=== PATIENT | female | born 1940 | race Caucasian/White ===

== ENCOUNTER 2017-04-27 02:15 | Emergency (ER) | payer OTHER ==
[2017-04-27 02:50] VITALS: RESP 18; TEMP 98.1
--- NOTE | 2017-04-27 02:52 | EDPHY ---
H & P Stated Complaint: per ems staff at [facility] report 2 episodes of coffee ground diarrhea Time Seen by Provider: 04/27/17 02:40 HPI/ROS: Chief Complaint: Diarrhea, coffee-ground emesis HPI: 77-year-old woman with a history of advanced dementia, hypertension who is being sent in from [facility] after having 2 episodes of dark stools and dark emesis. Per EMS nursing staff at [facility] contacted family members in the on-call doctor were instructed to send the patient to the hospital for further care. The patient has advanced dementia is unable to provide any further history at this time. The patient does have a completed medical orders for scope of treatment form. This indicates that she is not for CPR she was comfort focus treatment only she does not want any artificial nutrition this is signed by the patient's legal guardian. ROS: Unobtainable secondary to the patient's advanced dementia PMH: Hypertension, advanced dementia, glaucoma Social History: No smoking, no alcohol, no recreational drug use Family History: non-contributory Physical Exam: Gen: Awake, Alert, No Distress HEENT: Nose: no rhinorrhea Eyes: PERRLA, EOMI Mouth: Moist mucosa Neck: Supple, no JVD Chest: nontender, lungs clear to auscultation Heart: S1, S2 normal, no murmur Abd: Soft, non-tender, no guarding Rectal: Brown stool Ext: no edema, non-tender Skin: no rash Neuro: CN II-XII intact, Sensation grossly intact, Strength 5/5 in bilateral upper and lower extremities - Medical/Surgical History Other PMH: alzheimers dis, hypertension, glaucoma Constitutional: Initial Vital Signs Temperature (C) 36.7 C 04/27/17 02:22 Heart Rate 102 H 04/27/17 02:22 Respiratory Rate 18 04/27/17 02:22 Blood Pressure 121/79 H 04/27/17 02:22 O2 Sat (%) 91 L 04/27/17 02:22 O2 Delivery Mode Room Air Allergies/Adverse Reactions: No Known Allergies Allergy (Unverified 04/27/17 02:51) Home Medications: Medication Instructions Recorded Ativan 04/27/17 Immodium 04/27/17 Lantanoprost 04/27/17 Lisinopril 04/27/17 Melatonin 04/27/17 Risperdal 04/27/17 Sertraline HCl 04/27/17 Tylenol 04/27/17 Zofran 04/27/17 Medical Decision Making ED Course/Re-evaluation: Hemoccult is guaiac positive. I have reviewed the patient's most form which was not initially included in the patient's paperwork that came with EMS. The most form does indicate that she has never CPR, she is for comfort focus treatment only, she was not for artificial nutrition. This was signed by the legal guardian, Viry Camacho. I have spoken directly with Ms. Camacho this morning. She states that she did receive a phone call at 1:10 a.m. but she did not answer in slept through it. This is the 1st time that she spoke with anybody regarding this [place]erk this morning. She is confirming that the patient is for comfort measures only and would not want any life-sustaining treatments. She would not want any IVs or blood work done. She certainly would not want any endoscopies or any other treatments. Her wish is for comfort measures only. The patient's legal guardian, Mrs. Camacho, would like the patient transferred back to [facility] with no other evaluations or interventions done. I feel that this is appropriate given the patient's indication of her wishes on her forearm and her advanced dementia. She is not uncomfortable. She is currently sleeping. I have called [facility] spoken with nurse Haddad who arranged to have the patient transfer here. She states that she called the on-call physician instructed to send her in. She also states that her staff had contacted family who in indicated they wanted her transferred. They will accept her back at the other facility. - Data Points Laboratory Results: 04/27/17 02:50 Stool Occult Bld Scrn POSITIVE H (NEGATIVE) Departure - Departure Disposition: Home, Routine, Self-Care Clinical Impression: Vomiting Condition: Fair Instructions: Acute Nausea and Vomiting (ED) Additional Instructions: Please do not send this patient back to the emergency department unless her comfort needs cannot be met. Please respect the patient's wishes as documented on the signed [place] MOST form. Referrals: BERNARDA GALVEZ [Other] - As per Instructions
[2017-04-27 04:19] VITALS: BP 139/80; PULSE 91; O2SAT 92
== END 2017-04-27 04:19 | disposition home or self-care (01) ==
DX: R11.10 Vomiting, unspecified (principal); I10 Essential (primary) hypertension

== ENCOUNTER 2017-10-21 14:20 | Inpatient (IN) | payer OTHER ==
[2017-10-21] MEDS ORDERED: NS 1,000 ML IV ONE (14:48)
--- NOTE | 2017-10-21 14:48 | EDPHY ---
H & P Time Seen by Provider: 10/21/17 14:47 HPI/ROS: Chief complaint. Fever, right arm redness HPI. 77-year-old female here with fever and lethargy. Here brother visited her and found her to be lethargic. He also noticed left arm redness and swollen. Patient reports it is painful. Apparently no cough. How high the fever was is not known. She is afebrile here however. Symptoms apparently began in the last 1-2 days. Unclear whether the patient has painful urination. Patient has a baseline history of dementia so is a poor historian. Apparently no vomiting or diarrhea. No cough. ROS Constitutional. Fever and weakness Eyes. no problems with vision ENT. no sore throat, no nasal drainage Cardiovascular. no chest pain Respiratory. no shortness of breath, no cough Abdominal. no abdominal pain, no nausea/vomiting, no diarrhea . no problems urinating MS. no calf pain/swelling, no neck/back pain, no joint pain Skin. Redness left forearm Lymph. no swollen glands Neuro. Lethargy and decreased ability to walk Past Medical/Surgical History: Dementia, hypertension, glaucoma Social History: , nonsmoker, no alcohol Physical Exam: General Appearance: Lethargic but responsive well-developed female stable vital signs moderate distress Eyes: Pupils equal and round no pallor or injection. ENT, Mouth: Mucous membranes are moist. Respiratory: There are no retractions, lungs are clear to auscultation. Cardiovascular: Regular rate and rhythm. Gastrointestinal: Abdomen is soft and nontender, no masses, bowel sounds normal. Neurological: Awake and alert, sensory and motor exams grossly normal. Skin: Evidence of cellulitis and erythema in apparent pustule on the left forearm. Musculoskeletal: Neck is supple nontender. Extremities symmetrical, full range of motion. Psychiatric: Patient is oriented only to person Constitutional: Initial Vital Signs Temperature (C) 36.6 C 10/21/17 14:39 Heart Rate 77 10/21/17 14:39 Respiratory Rate 20 10/21/17 14:39 Blood Pressure 109/68 10/21/17 14:39 O2 Sat (%) 94 10/21/17 14:39 O2 Delivery Mode Nasal Cannula O2 (L/minute) 1 Allergies/Adverse Reactions: No Known Allergies Allergy (Unverified 04/27/17 02:51) Home Medications: Medication Instructions Recorded [facility] 04/27/17 Immodium 04/27/17 Lantanoprost 04/27/17 Lisinopril 04/27/17 Melatonin 04/27/17 Risperdal 04/27/17 Sertraline HCl 04/27/17 Tylenol 04/27/17 Zofran 04/27/17 Medical Decision Making - Diagnostics EKG Interpretation: EKG interpreted by me shows normal sinus rhythm with left axis deviation. Normal interval. Right bundle branch block and left anterior fascicular block. No significant ST elevation or depression. No arrhythmia. The rate is 78 Imaging Results: Imaging Impressions Chest X-Ray 10/21/17 14:49 Impression: Suspect airways disease and atelectasis with no definite acute cardiopulmonary abnormality identified. Chest x-ray shows no evidence of pneumonia Procedures: IV normal saline. Sepsis workup. Incision and drainage of left forearm. 1% lidocaine with epinephrine infiltrated. Sterile prep. 11. Blade for incision drainage with moderate amount of purulent sanguinous fluid. It is sent for culture sensitivity. Patient tolerates the procedure well. ED Course/Re-evaluation: Serial evaluations patient remained stable. The patient, her brother, and I discussed imaging and lab results. We discussed treatment plan including criteria for return importance of admission and further evaluation. They expressed understanding and agreement Patient is given IV vancomycin in the emergency department. I consulted and discussed the case with Dr. Joshi, hospitalist, who agrees to the admission Differential Diagnosis: I considered sepsis, pneumonia, urinary tract infection. It appears that this is likely cellulitis of her arm causing fever, lethargy, elevated white count. - Data Points Laboratory Results: Laboratory Results 10/21/17 14:15 10/21/17 14:15 10/21/17 10/21/17 10/21/17 17:07 16:20 16:02 WBC RBC Hgb Hct MCV MCH MCHC RDW Plt Count MPV Neut % (Auto) Lymph % (Auto) Coleman % (Auto) Eos % (Auto) Baso % (Auto) Nucleat RBC Rel Count Absolute Neuts (auto) Absolute Lymphs (auto) Absolute Monos (auto) Absolute Eos (auto) Absolute Basos (auto) Absolute Nucleated RBC Immature Gran % Immature Gran # PT INR APTT VBG Lactic Acid 1.1 mmol/L mmol/L (0.7-2.1) Sodium Potassium Chloride Carbon Dioxide Anion Gap BUN Creatinine Estimated GFR Glucose POC Lactic Acid Jordan 1.0 mmol/L mmol/L (0.7-2.1) Calcium Total Bilirubin POC Troponin I Urine Color YELLOW Urine Appearance HAZY Urine pH 5.0 (5.0-7.5) Ur Specific [place] 1.031 H (1.002-1.030) Urine Protein NEGATIVE (NEGATIVE) Urine Ketones NEGATIVE (NEGATIVE) Urine Blood 2+ H (NEGATIVE) Urine Nitrate NEGATIVE (NEGATIVE) Urine Bilirubin NEGATIVE (NEGATIVE) Urine Urobilinogen NEGATIVE EU EU (0.2-1.0) Ur Leukocyte Esterase NEGATIVE (NEGATIVE) Urine RBC 3-5 /hpf H /hpf (0-3) Urine WBC 1-3 /hpf /hpf (0-3) Ur Epithelial Cells TRACE /lpf /lpf (NONE-1+) Urine Mucus TRACE /lpf /lpf (NONE-1+) Urine Glucose NEGATIVE (NEGATIVE) 10/21/17 10/21/17 10/21/17 15:07 14:15 14:15 WBC RBC Hgb Hct MCV MCH MCHC RDW Plt Count MPV Neut % (Auto) Lymph % (Auto) Coleman % (Auto) Eos % (Auto) Baso % (Auto) Nucleat RBC Rel Count Absolute Neuts (auto) Absolute Lymphs (auto) Absolute Monos (auto) Absolute Eos (auto) Absolute Basos (auto) Absolute Nucleated RBC Immature Gran % Immature Gran # PT 14.0 SEC SEC (12.0-15.0) INR 1.06 (0.83-1.16) APTT 31.4 SEC SEC (23.0-38.0) VBG Lactic Acid Sodium 139 mEq/L mEq/L (135-145) Potassium 3.9 mEq/L mEq/L (3.3-5.0) Chloride 103 mEq/L mEq/L (97-110) Carbon Dioxide 24 mEq/l mEq/l (22-31) Anion Gap 12 mEq/L mEq/L (8-16) BUN 18 mg/dL mg/dL (7-23) Creatinine 0.6 mg/dL mg/dL (0.6-1.0) Estimated GFR > 60 Glucose 227 mg/dL H mg/dL (70-100) POC Lactic Acid Jordan Calcium 9.3 mg/dL mg/dL (8.5-10.4) Total Bilirubin 0.8 mg/dL mg/dL (0.1-1.4) POC Troponin I 0.01 ng/mL ng/mL (0.00-0.08) Urine Color Urine Appearance Urine pH Ur Specific [place] Urine Protein Urine Ketones Urine Blood Urine Nitrate Urine Bilirubin Urine Urobilinogen Ur Leukocyte Esterase Urine RBC Urine WBC Ur Epithelial Cells Urine Mucus Urine Glucose 10/21/17 14:15 WBC 17.74 10^3/uL H 10^3/uL (3.80-9.50) RBC 4.49 10^6/uL 10^6/uL (4.18-5.33) Hgb 13.6 g/dL g/dL (12.6-16.3) Hct 40.4 % % (38.0-47.0) MCV 90.0 fL fL (81.5-99.8) MCH 30.3 pg pg (27.9-34.1) MCHC 33.7 g/dL g/dL (32.4-36.7) RDW 12.6 % % (11.5-15.2) Plt Count 251 10^3/uL 10^3/uL (150-400) MPV 10.2 fL fL (8.7-11.7) Neut % (Auto) 91.5 % H % (39.3-74.2) Lymph % (Auto) 3.6 % L % (15.0-45.0) Coleman % (Auto) 3.7 % L % (4.5-13.0) Eos % (Auto) 0.0 % L % (0.6-7.6) Baso % (Auto) 0.2 % L % (0.3-1.7) Nucleat RBC Rel Count 0.0 % % (0.0-0.2) Absolute Neuts (auto) 16.24 10^3/uL H 10^3/uL (1.70-6.50) Absolute Lymphs (auto) 0.63 10^3/uL L 10^3/uL (1.00-3.00) Absolute Monos (auto) 0.66 10^3/uL 10^3/uL (0.30-0.80) Absolute Eos (auto) 0.00 10^3/uL L 10^3/uL (0.03-0.40) Absolute Basos (auto) 0.03 10^3/uL 10^3/uL (0.02-0.10) Absolute Nucleated RBC 0.00 10^3/uL 10^3/uL (0-0.01) Immature Gran % 1.0 % % (0.0-1.1) Immature Gran # 0.18 10^3/uL H 10^3/uL (0.00-0.10) PT INR APTT VBG Lactic Acid Sodium Potassium Chloride Carbon Dioxide Anion Gap BUN Creatinine Estimated GFR Glucose POC Lactic Acid Jordan Calcium Total Bilirubin POC Troponin I Urine Color Urine Appearance Urine pH Ur Specific [place] Urine Protein Urine Ketones Urine Blood Urine Nitrate Urine Bilirubin Urine Urobilinogen Ur Leukocyte Esterase Urine RBC Urine WBC Ur Epithelial Cells Urine Mucus Urine Glucose Medications Given: Discontinued Medications Sodium Chloride (Ns) 1,000 mls @ 0 mls/hr IV EDNOW ONE; Wide Open PRN Reason: Protocol Stop: 10/21/17 14:49 Last Admin: 10/21/17 15:14 Dose: 1,000 mls Ceftriaxone Sodium/Dextrose (Rocephin 1 Gm (Premix)) 50 mls @ 100 mls/hr IV EDNOW ONE PRN Reason: Protocol Stop: 10/21/17 16:29 Last Admin: 10/21/17 16:08 Dose: 50 mls Point of Care Test Results: Chemistry 10/21/17 15:07 POC Troponin I 0.01 ng/mL ng/mL (0.00-0.08) Blood Gas/Lactic Acid-Venous 10/21/17 16:02 POC Lactic Acid Jordan 1.0 mmol/L mmol/L (0.7-2.1) Departure - Departure Disposition: [facility] Inpatient Acute Clinical Impression: Cellulitis Qualifiers: Site of cellulitis: extremity Site of cellulitis of extremity: upper extremity Laterality: left Qualified Code(s): L03.114 - Cellulitis of left upper limb Condition: Fair Referrals: Patient,NotPresent [Primary Care Provider] - As per Instructions
[2017-10-21 14:58] LABS: PLATELET COUNT 251 10^3/uL (150-400)
[2017-10-21 15:07] LABS: INR 1.06 (0.83-1.16)
--- NOTE | 2017-10-21 15:51 | CPEKG ---
Heart Rate: 78 RR Interval: 769 P-R Interval: 156 QRSD Interval: 134 QT Interval: 400 QTC Interval: 456 P [place]: 64 QRS [place]: -42 T Wave [place]: 49 EKG Severity - ABNORMAL ECG - EKG Impression: SINUS RHYTHM EKG Impression: LEFT ATRIAL ABNORMALITY EKG Impression: RBBB AND LAFB EKG Impression: LEFT VENTRICULAR HYPERTROPHY Electronically Signed By: Moose Vu 21-Oct-2017 18:02:35
[2017-10-21] MEDS ORDERED: VANCOMYCIN HCL/NORMAL SALINE 250 ML IV ONE (17:40)
[2017-10-21] MEDS ORDERED: ACETAMINOPHEN 325 MG TAB PO PRN (17:53)
[2017-10-21] MEDS ORDERED: ONDANSETRON DISINTEGRATING 4 MG TAB PO PRN (17:53)
[2017-10-21] MEDS ORDERED: ONDANSETRON 4 MG/2 ML VIAL IVP PRN (17:53)
[2017-10-21] MEDS ORDERED: NS 1,000 ML IV SCH (18:45)
--- NOTE | 2017-10-21 19:43 | GHP ---
[f rep st] HISTORY AND PHYSICAL DATE OF ADMISSION: 10/21/2017 CHIEF COMPLAINT: Fever, confusion, left arm cellulitis. HISTORY OF PRESENT ILLNESS: A 77-year-old female with history of advanced Alzheimer dementia, hypert ension, brought in for fever. History is obtained from her qshiuzk-ka-hcv and staff at [facility] . Patient was very weak today, could not get her out of bed. She had fevers up to 101. Per staff, she is usually walking and singing and more talkative. Today, she had minimal conversation, more con fused. She has had decreased oral intake. No recent antibiotics. She does not use a walker or cane . PAST MEDICAL HISTORY: 1. Hypertension. 2. Alzheimer's. SOCIAL HISTORY: Lives in [facility]. Xjqmucx-qs-efi is her guardian, MD KENNEDY. She do es not smoke, drink, or do drugs. FAMILY HISTORY: Noncontributory. PAST SURGICAL HISTORY: Was unclear. HOME MEDICATIONS: Zofran, Tylenol, sertraline, risperidone, melatonin, lisinopril, latanoprost, Imod ium, Ativan. ALLERGIES: None. PHYSICAL EXAMINATION: VITAL SIGNS: Temperature 37.2, blood pressure 124/78, heart rate is in the 70 s, respiration 18, 87% on room air, 94 on 1. GENERAL: Elderly female in no acute distress, confused . HEENT: Dry mucous membranes. CV: Regular rate and rhythm. No murmurs, gallops, or rubs. LUNGS : Clear anteriorly. ABDOMEN: Soft. No grimace or pain with palpation. : No Jones. No suprapu bic tenderness. MUSCULOSKELETAL: Scabbed lesion over right wrist. Left forearm with superficial ce llulitis proximal to the elbow. The elbow is nontender. There is no effusion. She has full range o f motion. There is warmth. Per Dr. Vu, had a pustule that was draining serosanguineous, mild p urulence. NEURO: No focal deficits. PSYCHIATRIC: She is alert to the hospital. LABORATORY DATA: 1. WBC 17, hemoglobin 13, hematocrit 40, platelets 251. Coags within normal. Lactate is 1.1. Sodi um 139, potassium 3.9, chloride 103, carbon dioxide 24, BUN 18, creatinine 0.6, glucose 227, calcium 9.3, troponin 0.01. UA normal. 2. X-ray personally reviewed by me. No opacity. 3. EKG personally reviewed by me. Right bundle branch block. No old one to compare. ASSESSMENT AND PLAN: 1. Sepsis: Elevated white count, fever, and cellulitis. She has a normal lactate. She is hemodyna mically stable. The source is left upper extremity cellulitis. Blood cultures are drawn. Continue IV Ancef. Pustule was drained and cultures pending. UA and chest x-ray negative. She was having di arrhea. Will check a C difficile. 2. Acute on chronic encephalopathy: Underlying dementia, but decreased interaction and talking per staff. This is likely due to acute infection. Will treat as above. 3. Hypertension. Resume home medications. 4. Diet: Regular. 5. Goals: I had a lengthy discussion with her [id number] who is her guardian. She is do not re suscitate. This is on the chart. 6. Deep venous thrombosis prophylaxis: Lovenox. 7. Disposition: Patient warrants inpatient admission given sepsis, warranting IV antibiotics. /[id number]/MODL
--- NOTE | 2017-10-21 22:55 | PDMN ---
Medical Necessity Medical necessity: C/M review: Patient meets INPT criteria under MCG M-70 Cellulitis: Acute and persistent sepsis, left upper extremity cellulitis - left forearm with superficial cellulitis proximal to the elbow, warmth noted on physical exam, acute on chronic encephalopathy - decreased interaction and talking per staff likely due to acute infection, WBC 17.74, 87% RA sat, requiring IV KCl 20 meq in NS 1 L 75 ml/ hr. x 1 bag, ongoing IV Cefazolin Q 8 hrs., pulse oximetry, supplemental O2, comorbid Alzheimer's dementia, hypertension, patient admitted to [facility] from [facility], history of 101 T max at [facility], weakness - patient could not get out of her bed at [facility], per [facility] staff, patient is usually walking without a walker or cane, singing and talkative at baseline. MD anticipates > 2 MN LOS for ongoing med nec for eval and TX of above. Patient is Medicare Advantage which follows guidelines CMS puts forth.
[2017-10-22] MEDS: ENOXAPARIN 40 MG/0.4 ML SYR SC SCH (09:32)
[2017-10-22] MEDS: ACETAMINOPHEN 500 MG TAB PO SCH ×2 (13:59→21:02)
[2017-10-22] MEDS ORDERED: risperiDONE 0.5 MG TAB PO ONE (15:09)
[2017-10-22] MEDS ORDERED: LORazepam 0.5 MG TAB PO ONE (15:09)
[2017-10-22] MEDS ORDERED: SERTRALINE HCL 100 MG TAB PO ONE (15:30)
--- NOTE | 2017-10-22 16:04 | HOSPPROG ---
Hospitalist Progress Note Assessment/Plan: * Cellulitis left elbow -IV ancef -? involvement of the bursa - doubt septic joint * Abscess s/p I&D - MSSA -watch on abx to assess if further I&D needed * Advanced dementia -scheduled ativan + risperidone * Metabolic encephalopathy * HTN -lisinopril Subjective: confused Objective: Vital Signs Temp Pulse Resp BP Pulse Ox 37.5 C 80 20 132/68 H 94 10/22/17 15:25 10/22/17 15:25 10/22/17 15:25 10/22/17 15:25 10/22/17 15:25 Laboratory Results 10/22/17 05:30 10/21/17 10/22/17 10/23/17 05:59 05:59 05:59 Intake Total 1250 Output Total 650 350 Balance 600 -350 PT 14.0 SEC (12.0-15.0) 10/21/17 14:15 INR 1.06 (0.83-1.16) 10/21/17 14:15 CXR - negative EKG viewed, my personal interpretation is - NSR RBBB - Physical Exam Constitutional: no apparent distress, appears nourished, not in pain Cardiovascular: regular rate and rhythym, no murmur, rub, or gallop Respiratory: no respiratory distress, no rales or rhonchi, clear to auscultation Gastrointestinal: normoactive bowel sounds, soft, non-tender abdomen, no palpable masses Musculoskeletal: full muscle strength, normal joint ROM, other (cellulitis at elbow but not involving the joint - full ROM, possible bursal infection), No joint effusion, No joint tenderness, No pain with ROM Neurologic: No AAOx3 Psychiatric: encephalopathic, agitated, poor insight, poor judgement, poor memory ICD10 Worksheet Patient Problems: Problems Problem Status Onset Cellulitis Acute
--- NOTE | 2017-10-22 16:50 | ASMTCMCOM ---
CM Note CM Note Notes: Pt admitted for fever, sepsis. History includes advanced Alzheimer's dementia and hypertension. Pt lives at [facility] on the Memory Care Unit. The pt's [id number] is her guardian/MDPOA. Discharge needs remain unclear. Anticipate pt will likely return to [facility] when medically stable. CM will continue to follow for any potential needs or concerns. Current Discharge Plan: [facility] Date Signed: 10/22/2017 04:49 PM Electronically Signed By:Dawna Logan RN
[2017-10-22] MEDS: LATANOPROST 0.005% 2.5 ML OPHT DROPS EACHEYE SCH (21:02)
[2017-10-22] MEDS: risperiDONE 1 MG TAB PO SCH (21:02)
[2017-10-22] MEDS: MELATONIN 3 MG TAB PO SCH (21:02)
[2017-10-22] MEDS: LORazepam 0.5 MG TAB PO SCH (21:02)
[2017-10-22] MEDS: ceFAZolin 2 GM/DEXTROSE 100 ML IV SCH (21:03)
[2017-10-23 05:10] LABS: PLATELET COUNT 224 10^3/uL (150-400)
[2017-10-23] MEDS: ACETAMINOPHEN 500 MG TAB PO SCH ×3 (05:44→21:39)
[2017-10-23] MEDS: ceFAZolin 2 GM/DEXTROSE 100 ML IV SCH ×3 (05:44→21:39)
[2017-10-23] MEDS: ENOXAPARIN 40 MG/0.4 ML SYR SC SCH (08:32)
[2017-10-23] MEDS: SERTRALINE HCL 100 MG TAB PO SCH (08:32)
[2017-10-23] MEDS: LORazepam 0.5 MG TAB PO SCH ×2 (08:32→20:04)
[2017-10-23] MEDS: risperiDONE 0.5 MG TAB PO SCH (08:32)
[2017-10-23] MEDS: LISINOPRIL 10 MG TAB PO SCH (08:32)
--- NOTE | 2017-10-23 13:46 | HOSPPROG ---
Hospitalist Progress Note Assessment/Plan: * Cellulitis left elbow -IV ancef -? involvement of the bursa - doubt septic joint * Abscess s/p I&D - MSSA -watch on abx to assess if further I&D needed * Advanced dementia -scheduled ativan + risperidone * Metabolic encephalopathy * HTN -lisinopril Subjective: redness extending beyond margins today Objective: Vital Signs Temp Pulse Resp BP Pulse Ox 36.5 C 73 18 122/79 H 92 10/23/17 08:00 10/23/17 08:00 10/23/17 08:00 10/23/17 08:00 10/23/17 08:00 Laboratory Results 10/23/17 04:34 10/22/17 10/23/17 10/24/17 05:59 05:59 05:59 Intake Total 1250 507 Output Total 386 467 9634 Balance 600 -143 -1450 PT 14.0 SEC (12.0-15.0) 10/21/17 14:15 INR 1.06 (0.83-1.16) 10/21/17 14:15 - Physical Exam Constitutional: no apparent distress, appears nourished, not in pain Cardiovascular: regular rate and rhythym, no murmur, rub, or gallop Respiratory: no respiratory distress, no rales or rhonchi, clear to auscultation Gastrointestinal: normoactive bowel sounds, soft, non-tender abdomen, no palpable masses Skin: rash, other (erythema over lateral elbow, unclear if underlying abscess) Neurologic: No AAOx3 Psychiatric: encephalopathic, agitated, poor insight, poor judgement, poor memory, No interacting appropriately ICD10 Worksheet Patient Problems: Problems Problem Status Onset Cellulitis Acute
--- NOTE | 2017-10-23 18:43 | GCON ---
[f rep st] CONSULTATION INPATIENT INFECTIOUS DISEASE CONSULTATION REFERRING PHYSICIAN: Tawanna Frias MD REASON FOR REFERRAL: Left upper extremity cellulitis. HISTORY OF PRESENT ILLNESS: Patient is a 77-year-old female who is normally a resident of [facility]. She has moderate to severe Alzheimer disease. Patient was noticed to have a decr eased level of energy and involvement the day prior to admission. She was brought to [facility] and diagnosed with acute left upper extremity cellulitis with a small draining abscess on t he lateral aspect of her left forearm. This abscess was cultured. She was begun on empiric cefazoli n 2 g q.8 hours. Currently, she is resting comfortably in her hospital bed. [facility]. She has no new complaint. PAST MEDICAL HISTORY: 1. Alzheimer disease. 2. Hypertension. PAST SURGICAL HISTORY: No clear surgical history. SOCIAL HISTORY: Patient currently lives in [facility]. No tobacco, alcohol, or leidy g use in history. FAMILY HISTORY: Reviewed, but noncontributory. REVIEW OF SYSTEMS: Other than that detailed above in History of Present Illness, a comprehensive 10- system review is negative. PHYSICAL EXAMINATION: VITAL SIGNS: Temperature maximum is 37.6. Temperature current is 36.6. Hear t rate is 104. Respiratory rate is 20. Blood pressure is 132/77. GENERAL: The patient is a well-f ormed, well-nourished, elderly female, in no acute distress. She is not toxic on appearance. She is alert. She is not oriented to person, place, or time. HEENT: Normocephalic for age. Atraumatic. No scleral icterus. No oral lesion. No drainage from nares. Eyes, lids, conjunctivae are within no rmal limits. Pupils are equal and round bilaterally. NECK: Supple. No meningismus. LUNGS: Clear to auscultation bilaterally. Good effort. HEART: Regular rate and rhythm. No significant periphe ral edema. SKIN: Warm and dry to the touch. The patient has confluent erythema over the left forea rm with some extension up into the left upper arm. She has a small draining superficial abscess on t he lateral aspect of the proximal left forearm. There is no significant induration around this area. The erythema is extended distally, but not significantly proximally. Her soft tissues show no sign s of fluctuance and are not significantly tender to palpation. They are mildly warm. LABORATORY DATA: Patient has a CBC dated 10/23/2017, shows a white blood cell count of 7.22, hemoglo bin of 12.1, hematocrit of 36.5, and a platelet count of 224. Differential is left-shifted with 87% segmented neutrophils. Serum chemistries on 10/21/2017 are all within normal limits. Creatinine 0.6 . MICROBIOLOGIC DATA: Patient has abscess cavity culture from 10/21/2017 which is growing Staphylococc us aureus and group A streptococcus. The initial CHROMagar plate method in the micro lab indicates t he Staph aureus is methicillin sensitive. ASSESSMENT: Abscess and soft tissue infection, left upper extremity, secondary to methicillin-sensit carrie Staphylococcus aureus and group A streptococcus. Cefazolin is a good coverage choice for both of these organisms. We will continue this monotherapy and observe. PLAN: 1. Continue monotherapy with IV cefazolin. 2. Follow clinical appearance of left upper extremity. /[id number]/MODL
[2017-10-23] MEDS: LATANOPROST 0.005% 2.5 ML OPHT DROPS EACHEYE SCH (20:04)
[2017-10-23] MEDS: risperiDONE 1 MG TAB PO SCH (20:04)
[2017-10-23] MEDS: MELATONIN 3 MG TAB PO SCH (20:04)
[2017-10-24] MEDS: ceFAZolin 2 GM/DEXTROSE 100 ML IV SCH ×3 (04:57→21:04)
[2017-10-24] MEDS: ACETAMINOPHEN 500 MG TAB PO SCH ×3 (04:57→21:40)
[2017-10-24 05:36] LABS: PLATELET COUNT 269 10^3/uL (150-400)
[2017-10-24] MEDS: LORazepam 0.5 MG TAB PO SCH ×2 (10:14→21:07)
[2017-10-24] MEDS: SERTRALINE HCL 100 MG TAB PO SCH (10:14)
[2017-10-24] MEDS: risperiDONE 0.5 MG TAB PO SCH (10:14)
[2017-10-24] MEDS: ENOXAPARIN 40 MG/0.4 ML SYR SC SCH (10:14)
[2017-10-24] MEDS: LISINOPRIL 10 MG TAB PO SCH (10:14)
--- NOTE | 2017-10-24 13:16 | PCMIDPN ---
Assessment/Plan: Assessment/Plan: * Left upper extremity cellulitis/small abscess now with evidence of MSSA bacteremia and wound culture showing both MSSA and group A Streptococcus: Slight extension of erythema beyond previously demarcated lines. Minimal purulence expressed from abscess site. Continue cefazolin. Follow clinical exam as abscess may mature into drainable focus with additional time. Suspect will be slower to resolve given inability to have patient participate with upper extremity elevation. * Bacteremia: Blood cultures now with growth of MSSA associated with cellulitis and abscess. Plan repeat blood cultures in a.m. To document clearing of bacteremia. This will necessitate longer duration of antibiotic treatment. 10/24/17 13:14 10/24/17 13:15 Subjective: Patient interactive but unable to have meaningful discourse. Objective: Vital Signs Temp Pulse Resp BP Pulse Ox 36.8 C 75 20 117/71 92 10/24/17 07:51 10/24/17 07:51 10/24/17 07:51 10/24/17 10:14 10/24/17 07:51 Laboratory Results 10/24/17 05:07 10/23/17 10/24/17 10/25/17 05:59 05:59 05:59 Intake Total 507 750 Output Total 650 2350 Balance -143 -1600 Cefazolin # 2 Blood cultures 1/2 sets MSSA Wound culture MSSA, group A Streptococcus - Physical Exam General Appearance: alert, no apparent distress, non-toxic EENT: No scleral icterus, No thrush Cardiac/Chest: regular rate, rhythm Extremities: inflammation (Left upper extremity with erythema and edema over upper arm extending into forearm; slight extension of erythema beyond previously demarcated margins; no fluctuance or bulla; small abscess with small amount of purulent drainage expressed but no larger area of induration or fluctuance) Abdomen: non-tender, No distended ICD10 Worksheet Patient Problems: Problems Problem Status Onset Cellulitis Acute
--- NOTE | 2017-10-24 15:08 | HOSPPROG ---
Hospitalist Progress Note Assessment/Plan: * Cellulitis left elbow -IV ancef -? involvement of the bursa - doubt septic joint -d/w Dr. Baxter - watch clinically for now -consider further imaging if fails to improve * MSSA bacteremia -will require longer IV antibiotics for treatment * Abscess s/p I&D - MSSA -watch on abx to assess if further I&D needed * Advanced dementia -scheduled ativan + risperidone * Metabolic encephalopathy * HTN -lisinopril Subjective: No complaints. Objective: Vital Signs Temp Pulse Resp BP Pulse Ox 36.8 C 75 20 117/71 92 10/24/17 07:51 10/24/17 07:51 10/24/17 07:51 10/24/17 10:14 10/24/17 07:51 Laboratory Results 10/24/17 05:07 10/23/17 10/24/17 10/25/17 05:59 05:59 05:59 Intake Total 507 750 Output Total 650 2350 Balance -143 -1600 PT 14.0 SEC (12.0-15.0) 10/21/17 14:15 INR 1.06 (0.83-1.16) 10/21/17 14:15 - Physical Exam Constitutional: no apparent distress, appears nourished, not in pain Cardiovascular: regular rate and rhythym, no murmur, rub, or gallop Respiratory: no respiratory distress, no rales or rhonchi, clear to auscultation Gastrointestinal: normoactive bowel sounds, soft, non-tender abdomen, no palpable masses Skin: no rashes or abrasions, no fluctuance, no induration Neurologic: AAOx3, sensation intact bilaterally Psychiatric: interacting appropriately, not anxious, not encephalopathic, thought process linear ICD10 Worksheet Patient Problems: Problems Problem Status Onset Cellulitis Acute
[2017-10-24] MEDS: MELATONIN 3 MG TAB PO SCH (21:05)
[2017-10-24] MEDS: risperiDONE 1 MG TAB PO SCH (21:07)
[2017-10-24] MEDS: LATANOPROST 0.005% 2.5 ML OPHT DROPS EACHEYE SCH (21:09)
--- NOTE | 2017-10-25 21:39 | PCMIDPN ---
Assessment/Plan: LUE cellulitis w cultures showing GAS and MSSA. Persistent mild induration on the posterior aspect of the forearm elbow and immediate upper arm. No clear fluctuance on exam. Left upper extremity infection is complicated by MSSA bacteremia. White count normal at 7.2 --repeat blood cultures --plan to continue IV antibiotics for 4 weeks, if consistent with patients goals of care --Once blood cultures cleared, can place PICC line Medications Cefazolin 2 g IV Q 8, #3, Cr 0.7 S: patient with specific c/o due to dementia and nonsensical speech Exam General: Disheveled elderly woman with nonsensical speech HEENT poor dentition, no scleral icterus, generalized pallor Pulmonary: Breathing easy Extremity: Left upper extremity with dull erythema and edema over the posterior upper and forearm , no fluctuance Skin: pallor Objective: Vital Signs Temp Pulse Resp BP Pulse Ox 37.1 C 62 17 125/71 H 93 10/24/17 23:29 10/24/17 23:29 10/24/17 23:29 10/24/17 23:29 10/24/17 23:29 Laboratory Results 10/24/17 05:07 10/24/17 10/25/17 10/26/17 05:59 05:59 05:59 Intake Total 750 Output Total 2350 Balance -1600 ICD10 Worksheet Patient Problems: Problems Problem Status Onset Cellulitis Acute
--- NOTE | 2017-10-25 22:30 | ASMTCMCOM ---
CM Note CM Note Notes: CM spoke to Joie RN and Richelle, pharmacist regarding d/c POC. Pt will most likely require iv Ancept at time of d/c. for bacteremia. Pt will return to [facility] once medically stable. CM to follow. Plan: [facility] Date Signed: 10/25/2017 02:37 PM Electronically Signed By:PARAMJIT Barragan
[2017-10-26] MEDS: ACETAMINOPHEN 500 MG TAB PO SCH ×4 (05:34→22:57)
[2017-10-26] MEDS: LATANOPROST 0.005% 2.5 ML OPHT DROPS EACHEYE SCH ×2 (05:34→22:59)
[2017-10-26] MEDS: ENOXAPARIN 40 MG/0.4 ML SYR SC SCH ×2 (05:34→09:12)
[2017-10-26] MEDS: LISINOPRIL 10 MG TAB PO SCH ×2 (05:34→09:07)
[2017-10-26] MEDS: ceFAZolin 2 GM/DEXTROSE 100 ML IV SCH ×4 (05:34→22:59)
[2017-10-26] MEDS: risperiDONE 0.5 MG TAB PO SCH ×2 (05:35→09:07)
[2017-10-26] MEDS: risperiDONE 1 MG TAB PO SCH ×2 (05:35→22:57)
[2017-10-26] MEDS: SERTRALINE HCL 100 MG TAB PO SCH ×2 (05:35→09:07)
[2017-10-26] MEDS: MELATONIN 3 MG TAB PO SCH ×2 (05:35→22:58)
[2017-10-26] MEDS: LORazepam 0.5 MG TAB PO SCH ×3 (05:35→22:57)
--- NOTE | 2017-10-26 09:30 | HOSPPROG ---
Hospitalist Progress Note Assessment/Plan: * Cellulitis left elbow -IV ancef -s/p I&D abscess - check US for remaining fluid * MSSA bacteremia -will require longer IV antibiotics for treatment -repeat BC negative * Abscess s/p I&D - MSSA -US to assess if further I&D needed * Advanced dementia -scheduled ativan + risperidone -family concerned she will pull out PICC if needed at SNF * Metabolic encephalopathy -much weaker than baseline - PT/OT -may need SNF at [facility] rather than memory care unit * HTN -lisinopril Subjective: No new complaints. Objective: Vital Signs Temp Pulse Resp BP Pulse Ox 36.3 C 78 18 169/92 H 92 10/26/17 07:34 10/26/17 07:34 10/26/17 07:34 10/26/17 07:34 10/26/17 07:34 Laboratory Results 10/24/17 05:07 PT 14.0 SEC (12.0-15.0) 10/21/17 14:15 INR 1.06 (0.83-1.16) 10/21/17 14:15 d/w Dr. beyer - possible comfort measures as an option Recheck CBC in am - Physical Exam Constitutional: no apparent distress, appears nourished, not in pain Cardiovascular: regular rate and rhythym, no murmur, rub, or gallop Respiratory: no respiratory distress, no rales or rhonchi, clear to auscultation Gastrointestinal: normoactive bowel sounds, soft, non-tender abdomen, no palpable masses Skin: erythema, induration, fluctuance, other (erythema no longer extending beyond margins, localized area of possible abscess remains) Musculoskeletal: full muscle strength Neurologic: No AAOx3 Psychiatric: encephalopathic, poor insight, poor judgement, poor memory, other ( very demented, not able to converse regarding situation), No interacting appropriately, No agitated ICD10 Worksheet Patient Problems: Problems Problem Status Onset Cellulitis Acute
--- NOTE | 2017-10-26 11:19 | PCMIDPN ---
Assessment/Plan: LUE cellulitis w cultures showing GAS and MSSA. Persistent mild induration on the posterior aspect of the forearm elbow and immediate upper arm. No clear fluctuance on exam. Left upper extremity infection is complicated by MSSA bacteremia. --MOST order for comfort measures only --palliative care to sort out MOST --continue antibiotics until sorted out Medications Cefazolin 2 g IV Q 8, #4 Subjective: patient with specific c/o due to dementia and nonsensical speech Objective: Vital Signs Temp Pulse Resp BP Pulse Ox 36.3 C 78 18 169/92 H 92 10/26/17 07:34 10/26/17 07:34 10/26/17 07:34 10/26/17 07:34 10/26/17 07:34 Laboratory Results 10/24/17 05:07 Exam General: Disheveled elderly woman with nonsensical speech HEENT poor dentition, no scleral icterus, generalized pallor Pulmonary: Breathing easy Extremity: Left upper extremity with dull erythema and edema over the posterior upper and forearm , no fluctuance, stable exam Skin: pallor ICD10 Worksheet Patient Problems: Problems Problem Status Onset Cellulitis Acute
--- NOTE | 2017-10-26 12:47 | ASMTCMCOM ---
CM Note CM Note Notes: Spoke w/ and Aubrey from Palliative, pt's MOST form states comfort measures only. Unclear if guardian will continue with IV treatment. Aubrey to arrange palliative consult with guardian, MICAELA at [facility] notified. DC Plan: TBD Date Signed: 10/26/2017 12:45 PM Electronically Signed By:Alyssa Jose RN
[2017-10-26] MEDS ORDERED: MAGNESIUM HYDROXIDE 30 ML UDCUP PO PRN (16:05)
[2017-10-26] MEDS ORDERED: POLYETHYLENE GLYCOL 3350 17 GM PKT PO PRN (16:05)
[2017-10-26] MEDS ORDERED: BISACODYL 10 MG SUPP PR PRN (16:05)
[2017-10-26] MEDS ORDERED: LACTULOSE 20 GM/30 ML UDCUP PO PRN (16:05)
[2017-10-26] MEDS: SENNOSIDES/DOCUSATE SODIUM TAB PO SCH (22:58)
[2017-10-27] MEDS: ceFAZolin 2 GM/DEXTROSE 100 ML IV SCH ×3 (05:43→21:08)
[2017-10-27] MEDS: ACETAMINOPHEN 500 MG TAB PO SCH ×3 (06:16→23:08)
[2017-10-27] MEDS: risperiDONE 0.5 MG TAB PO SCH (09:19)
[2017-10-27] MEDS: LORazepam 0.5 MG TAB PO SCH ×2 (09:19→21:08)
[2017-10-27] MEDS: ENOXAPARIN 40 MG/0.4 ML SYR SC SCH (09:19)
[2017-10-27] MEDS: SERTRALINE HCL 100 MG TAB PO SCH (09:19)
[2017-10-27] MEDS: LISINOPRIL 10 MG TAB PO SCH (09:19)
[2017-10-27] MEDS: SENNOSIDES/DOCUSATE SODIUM TAB PO SCH ×2 (09:19→21:08)
--- NOTE | 2017-10-27 10:18 | PCMIDPN ---
Assessment/Plan: 1. Left upper extremity cellulitis with cultures growing group a strep and MSSA/ concomitant MSSA bacteremia: Ultrasound yesterday showed a 2.2 x 2.5 x 0.8 cm collection/phlegmon. I proceeded to have a long conversation with the power of financial compliance examiner by telephone, Juan Antonio ([phone])--he conveyed to me that he feels blindsided/irritated by the fact that all of the doctors told him that the patient was improving, then yesterday told him that the patient should be in hospice. He felt that this came out of the blue. He told me "I need to talk to the other 6 family members before any decisions are made."I expressed complete understanding and conveyed empathy. We proceeded to have a conversation about her infection moving forward. I told him that I think we should try and get interventional Radiology to drain any remaining collection in her arm, and continue IV antibiotics while she is hospitalized. Then, once a decision is made about the plan moving forward, would proceed with treatment with oral antibiotics, and not place a PICC line. Explained to him that this is not standard of care in the setting of bacteremia. He expressed understanding, and told me that he completely agrees with this plan, and that she would not do well with a PICC line or IV in place and would almost certainly pull it out. He feels that this would cause her more problems/pain. I conveyed this conversation to Alyssa, the social science analyst as well as the hospitalist, , and the patient's nurse, Marilou. Juan Antonio would like to be present for the drainage of the possible abscess if at all possible, and I have asked the patient's nurse to coordinate this with him. For now, will continue Ancef as per the above. Over 35 min was spent with this patient today. Subjective: Patient complaining of pain in her arm. No diarrhea. Objective: Ancef 2 g IV q.8 hours day 5 No fevers Vital Signs Temp Pulse Resp BP Pulse Ox 36.7 C 72 16 162/95 H 92 10/27/17 07:26 10/27/17 07:26 10/27/17 07:26 10/27/17 09:19 10/27/17 07:26 Laboratory Results 10/24/17 05:07 10/26/17 10/27/17 10/28/17 05:59 05:59 05:59 Intake Total 790 Balance 790 Repeat blood cultures October 26 no growth so far Previous blood cultures with MSSA Ultrasound with 2.2 x 2.5 x 0.8 cm phlegmon/abscess in the left upper extremity - Physical Exam General Appearance: no apparent distress, obese EENT: other (False teeth), No thrush Extremities: other (Left elbow area is tender and swollen with pinkish blanching erythema. No bullae. No fluctuance. It is more indurated.) ICD10 Worksheet Patient Problems: Problems Problem Status Onset Cellulitis Acute
[2017-10-27] MEDS ORDERED: LIDOCAINE 1% 300 MG/30 ML SDV ONE (13:43)
--- NOTE | 2017-10-27 14:39 | HOSPPROG ---
Hospitalist Progress Note Assessment/Plan: * Cellulitis left elbow -IV ancef * MSSA bacteremia -2-4 weeks IV antibiotics indicated -d/w Dr. Madrigal - consider less aggressive palliative care approach -concern regarding PICC line in memory care unit * Abscess s/p I&D - MSSA -US shows residual fluid -consult IR to drain - may need surgical consultation * Advanced dementia -scheduled ativan + risperidone * Metabolic encephalopathy * HTN -lisinopril Subjective: No new complaints. Objective: Vital Signs Temp Pulse Resp BP Pulse Ox 36.7 C 72 16 162/95 H 92 10/27/17 07:26 10/27/17 07:26 10/27/17 07:26 10/27/17 09:19 10/27/17 07:26 Laboratory Results 10/24/17 05:07 10/26/17 10/27/17 10/28/17 05:59 05:59 05:59 Intake Total 790 Balance 790 PT 14.0 SEC (12.0-15.0) 10/21/17 14:15 INR 1.06 (0.83-1.16) 10/21/17 14:15 US - residual subQ fluid pocket remains - Physical Exam Constitutional: no apparent distress, appears nourished, not in pain Cardiovascular: regular rate and rhythym, no murmur, rub, or gallop Respiratory: no respiratory distress, no rales or rhonchi, clear to auscultation Gastrointestinal: normoactive bowel sounds, soft, non-tender abdomen, no palpable masses Skin: warm, erythema, induration, fluctuance, rash Neurologic: No AAOx3 Psychiatric: poor insight, poor judgement, poor memory, No interacting appropriately ICD10 Worksheet Patient Problems: Problems Problem Status Onset Cellulitis Acute
[2017-10-27] MEDS: MELATONIN 3 MG TAB PO SCH (21:08)
[2017-10-27] MEDS: risperiDONE 1 MG TAB PO SCH (21:08)
[2017-10-27] MEDS: LATANOPROST 0.005% 2.5 ML OPHT DROPS EACHEYE SCH (21:14)
[2017-10-28 05:02] LABS: PLATELET COUNT 362 10^3/uL (150-400)
[2017-10-28] MEDS: ceFAZolin 2 GM/DEXTROSE 100 ML IV SCH ×3 (05:59→21:32)
[2017-10-28] MEDS: ACETAMINOPHEN 500 MG TAB PO SCH ×3 (06:09→21:32)
[2017-10-28] MEDS: LORazepam 0.5 MG TAB PO SCH ×2 (07:53→21:32)
[2017-10-28] MEDS: risperiDONE 0.5 MG TAB PO SCH (07:53)
[2017-10-28] MEDS: SERTRALINE HCL 100 MG TAB PO SCH (07:53)
[2017-10-28] MEDS: LISINOPRIL 10 MG TAB PO SCH (07:53)
[2017-10-28] MEDS: ENOXAPARIN 40 MG/0.4 ML SYR SC SCH (07:54)
[2017-10-28] MEDS: SENNOSIDES/DOCUSATE SODIUM TAB PO SCH ×2 (07:54→21:32)
--- NOTE | 2017-10-28 08:16 | HOSPPROG ---
Hospitalist Progress Note Assessment/Plan: #Left forearm abscess: now fluctuant; not improved on IV Ancef. Discussed with Dr. Madrigal and Dr. Mancera who will do bedside I/D -ok given by Juan Antonio FOX #MSSA bacteremia: IV Ancef #Dementia: fall precautions #Leukocytosis: improved on abx #Diet: regular #DVT ppx: lovenox #Disp: cont inpatient admission for IV abx, I&D Subjective: denies pain in left arm Objective: Vital Signs Temp Pulse Resp BP Pulse Ox 36.9 C 73 12 133/73 H 85 L 10/28/17 07:34 10/28/17 07:34 10/28/17 07:34 10/28/17 07:53 10/28/17 07:34 Microbiology 10/27/17 15:30 Gram Stain - Final Arm - Aspirate Laboratory Results 10/28/17 04:23 10/27/17 10/28/17 10/29/17 05:59 05:59 05:59 Intake Total 790 300 Balance 790 300 PT 14.0 SEC (12.0-15.0) 10/21/17 14:15 INR 1.06 (0.83-1.16) 10/21/17 14:15 - Time Spent With Patient Time Spent with Patient: greater than 35 minutes Time Spent with Patient: Greater than 35 minutes spent on this patients care, greater than 50% of time spent counseling, educating, and coordinating care regarding the above mentioned plan. - Physical Exam Constitutional: no apparent distress Eyes: PERRL Ears, Nose, Mouth, Throat: moist mucous membranes Cardiovascular: regular rate and rhythym Respiratory: no respiratory distress Gastrointestinal: normoactive bowel sounds Genitourinary: no bladder fullness Skin: warm ICD10 Worksheet Patient Problems: Problems Problem Status Onset Cellulitis Acute
--- NOTE | 2017-10-28 09:16 | PCMIDPN ---
Assessment/Plan: 1. Left upper extremity cellulitis with cultures growing group a strep and MSSA/ concomitant MSSA bacteremia: Unfortunately, attempted aspiration was unsuccessful by interventional Radiology. On exam, I feel the patient is developing an abscess, as it is now fluctuant today. Left long message with power of classroom teacher, Juan Antonio, explaining the fact that I do feel she needs surgical intervention at this point given high suspicion for underlying abscess. Asked him to please call the floor and that I could be paged to discuss. Continue Ancef for now. Subjective: Attempted IR aspiration was unsuccessful. Only 2 cc aspirated. Patient is sitting in the chair; just finished breakfast. Tells me"do not touch my arm." Objective: Ancef 2 g IV Q 8 hr day 6 Afebrile Vital Signs Temp Pulse Resp BP Pulse Ox 36.9 C 73 12 133/73 H 85 L 10/28/17 07:34 10/28/17 07:34 10/28/17 07:34 10/28/17 07:53 10/28/17 07:34 Microbiology 10/27/17 15:30 Gram Stain - Final Arm - Aspirate Laboratory Results 10/28/17 04:23 10/27/17 10/28/17 10/29/17 05:59 05:59 05:59 Intake Total 790 300 Balance 790 300 No new microbiology G stain from fluid from her arm yesterday showed 2+ Gram-positive cocci - Physical Exam General Appearance: no apparent distress, obese Extremities: other (Left upper extremity: There is a new area of fluctuance with overlying skin erythema that has really not significantly improved compared to the rest of her arm. The skin near her elbow where the previous aspiration was performed is much better. Erythema has practically resolved.) ICD10 Worksheet Patient Problems: Problems Problem Status Onset Cellulitis Acute
--- NOTE | 2017-10-28 12:29 | ASMTCMCOM ---
CM Note CM Note Notes: Per ID , pt will need I&D on her forearm. She spoke with pt's guardian/MDPOA who gave permission to proceed. D/C plan still is [facility] when medically ready. CM will continue to follow. Date Signed: 10/28/2017 12:28 PM Electronically Signed By:ZEE Cerna
--- NOTE | 2017-10-28 13:10 | SOAPPROG ---
SOAP Progress Note Assessment/Plan: Assessment/Plan: PT seen and examined Agree with dx and management plan outlined Full consult to follow I&D later today at bedside 10/28/17 13:09 Objective: Vital Signs Temp Pulse Resp BP Pulse Ox 36.9 C 73 12 133/73 H 85 L 10/28/17 07:34 10/28/17 07:34 10/28/17 07:34 10/28/17 07:53 10/28/17 07:34 Microbiology 10/27/17 15:30 Gram Stain - Final Arm - Aspirate Laboratory Results 10/28/17 04:23 10/27/17 10/28/17 10/29/17 05:59 05:59 05:59 Intake Total 790 300 Balance 790 300 PT 14.0 SEC (12.0-15.0) 10/21/17 14:15 INR 1.06 (0.83-1.16) 10/21/17 14:15 ICD10 Worksheet Patient Problems: Problems Problem Status Onset Cellulitis Acute
[2017-10-28] MEDS: risperiDONE 1 MG TAB PO SCH (21:32)
[2017-10-28] MEDS: MELATONIN 3 MG TAB PO SCH (21:32)
[2017-10-28] MEDS: LATANOPROST 0.005% 2.5 ML OPHT DROPS EACHEYE SCH (21:37)
--- NOTE | 2017-10-28 22:09 | PDCONSULT ---
House Supervisor Note: Chief complaint: Fever, confusion, left arm cellulitis History of illness this is a 77-year-old patient with advanced Alzheimer's dimension (brought in by her [id number] her medical power of feeder tender) from [facility] with fevers of 101 and increased confusion. Patient has been in the hospital for several days has had ultrasound-guided aspiration of left arm fluid collection, consultation by infectious disease and medical management of her other issues are internal Medicine. Consultation was requested for fluctuance in the arm with possible need for drainage. Health medical history surgical history social history are unable to be obtained as the patient is demented ROS is not able to be obtained as patient cannot give a clear history. All data in the chart is reviewed please see H&P and other notes for details obtained from the brother in law No known drug allergies Alert disoriented rambling about people and events not occurring Anicteric sclerae are Oropharynx slightly dry Regular rate and rhythm Clear to auscultation Abdomen soft nontender Left upper extremity with forearm and upper arm cellulitis receiving from view of previous mirza Fluctuant area in the mid part of the forearm ulnar side posterior Review ultrasound laboratory studies and notes were performed Impression left arm abscess Plan: Incision and drainage at bedside Consent has been obtained from [id number] are ready Procedure note: The patient's arm was prepped with alcohol local anesthetic 1% xylocaine was infused in skin and subcutaneous tissues 80 longitudinal incision was made and deepened with blunt dissection minimal purulence was obtained the tissue which appeared indurated in phlegmatus. One-inch packing was placed proximally and distally to allow adequate drainage after washout with 30 cc of normal saline. The patient tolerated the procedure well will continue to follow while the patient is here in the hospital
[2017-10-29] MEDS: ACETAMINOPHEN 500 MG TAB PO SCH ×3 (05:11→20:48)
[2017-10-29] MEDS: ceFAZolin 2 GM/DEXTROSE 100 ML IV SCH ×3 (05:11→20:46)
--- NOTE | 2017-10-29 07:04 | SOAPPROG ---
SOAP Progress Note Assessment/Plan: Assessment/Plan: PT seen and examined dressing changed wound clean less erythema no fluctuance Packing out tomorrow 10/29/17 07:03 Objective: Vital Signs Temp Pulse Resp BP Pulse Ox 36.8 C 72 18 135/69 H 95 10/28/17 22:22 10/28/17 22:22 10/28/17 22:22 10/28/17 22:22 10/28/17 22:22 Microbiology 10/27/17 15:30 Gram Stain - Final Arm - Aspirate Laboratory Results 10/28/17 04:23 10/28/17 10/29/17 10/30/17 05:59 05:59 05:59 Intake Total 300 720 Balance 300 720 PT 14.0 SEC (12.0-15.0) 10/21/17 14:15 INR 1.06 (0.83-1.16) 10/21/17 14:15 ICD10 Worksheet Patient Problems: Problems Problem Status Onset Cellulitis Acute
[2017-10-29] MEDS: ENOXAPARIN 40 MG/0.4 ML SYR SC SCH (08:18)
[2017-10-29] MEDS: SERTRALINE HCL 100 MG TAB PO SCH (08:18)
[2017-10-29] MEDS: LISINOPRIL 10 MG TAB PO SCH (08:19)
[2017-10-29] MEDS: risperiDONE 0.5 MG TAB PO SCH (08:19)
[2017-10-29] MEDS: LORazepam 0.5 MG TAB PO SCH ×2 (08:19→19:57)
[2017-10-29] MEDS: SENNOSIDES/DOCUSATE SODIUM TAB PO SCH ×2 (08:19→19:52)
--- NOTE | 2017-10-29 11:42 | PCMIDPN ---
Assessment/Plan: 1. Left upper extremity cellulitis with cultures growing group a strep and MSSA/ concomitant MSSA bacteremia: Marked improvement after bedside incision and drainage. Appreciate Dr. Mancera' s assistance. Continue cefazolin for now. As per my previous notes, have discussed plans for antibiotics moving forward extensively with the power of pickle water pump operator,Juan Antonio. Suspect early next week she will be able to go, but on oral antibiosis, as both he and I feel that she would not tolerate a PICC line. Again, he understands that this is not standard of care in the setting of Staph aureus bacteremia, but we feel that this is in the patient's best interest moving forward given her previously outlined end of life wishes. Subjective: Status post bedside incision and drainage of Staph aureus/group a strep abscess left forearm. Much better today. No obvious fluctuance. Some ongoing surrounding erythema, but overall much better. Patient in good spirits, smiling. Says her arm is much less painful. Objective: Ancef 2 g IV q.8 hours day 7 No fevers Vital Signs Temp Pulse Resp BP Pulse Ox 36.6 C 66 16 163/84 H 93 10/29/17 07:37 10/29/17 07:37 10/29/17 07:37 10/29/17 08:19 10/29/17 07:37 Microbiology 10/27/17 15:30 Gram Stain - Final Arm - Aspirate Laboratory Results 10/28/17 04:23 10/28/17 10/29/17 10/30/17 05:59 05:59 05:59 Intake Total 300 720 Balance 300 720 - Physical Exam General Appearance: alert, no apparent distress EENT: other (False teeth uppers and lowers), No thrush Extremities: other (Left forearm unwrapped: Small incision visible with packing in place. No obvious surrounding fluctuance. Some doughy swelling with pinkish erythema distally, but overall swelling is much better and cellulitis markedly improved.) ICD10 Worksheet Patient Problems: Problems Problem Status Onset Cellulitis Acute
--- NOTE | 2017-10-29 15:45 | HOSPPROG ---
Hospitalist Progress Note Assessment/Plan: #Left forearm abscess: s/p bedside I/D. #MSSA bacteremia: IV Ancef while here in hospital. Dr. Meeks had long conversation with Juan Antonio ([facility]) and they both agree for less aggressive treatment. Plan for oral abx rather than PICC and IV abx #Dementia: fall precautions #Leukocytosis: improved on abx #Diet: regular #DVT ppx: lovenox #Disp: cont inpatient admission for IV abx, I&D Subjective: denies pain in arm. Family at bedside Objective: Vital Signs Temp Pulse Resp BP Pulse Ox 37.1 C 81 18 154/95 H 93 10/29/17 15:39 10/29/17 15:39 10/29/17 15:39 10/29/17 15:39 10/29/17 15:39 Microbiology 10/27/17 15:30 Gram Stain - Final Arm - Aspirate Laboratory Results 10/28/17 04:23 10/28/17 10/29/17 10/30/17 05:59 05:59 05:59 Intake Total 300 720 Balance 300 720 PT 14.0 SEC (12.0-15.0) 10/21/17 14:15 INR 1.06 (0.83-1.16) 10/21/17 14:15 - Time Spent With Patient Time Spent with Patient: greater than 35 minutes Time Spent with Patient: Greater than 35 minutes spent on this patients care, greater than 50% of time spent counseling, educating, and coordinating care regarding the above mentioned plan. - Physical Exam Constitutional: no apparent distress Eyes: PERRL Ears, Nose, Mouth, Throat: moist mucous membranes Cardiovascular: regular rate and rhythym, no murmur, rub, or gallop Respiratory: no respiratory distress, no rales or rhonchi Gastrointestinal: normoactive bowel sounds, lester's sign Musculoskeletal: other (left forearm dressed, C/D/I. Mild redness. No pain. ) Neurologic: AAOx3 Psychiatric: interacting appropriately ICD10 Worksheet Patient Problems: Problems Problem Status Onset Cellulitis Acute
[2017-10-29] MEDS: risperiDONE 1 MG TAB PO SCH (19:57)
[2017-10-29] MEDS: MELATONIN 3 MG TAB PO SCH (19:57)
[2017-10-29] MEDS: LATANOPROST 0.005% 2.5 ML OPHT DROPS EACHEYE SCH (19:58)
[2017-10-30] MEDS: ACETAMINOPHEN 500 MG TAB PO SCH ×3 (05:43→21:01)
[2017-10-30] MEDS: ceFAZolin 2 GM/DEXTROSE 100 ML IV SCH ×3 (05:44→21:01)
[2017-10-30] MEDS: risperiDONE 0.5 MG TAB PO SCH (08:24)
[2017-10-30] MEDS: LISINOPRIL 10 MG TAB PO SCH (08:24)
[2017-10-30] MEDS: LORazepam 0.5 MG TAB PO SCH ×2 (08:24→20:03)
[2017-10-30] MEDS: SENNOSIDES/DOCUSATE SODIUM TAB PO SCH ×2 (08:25→19:58)
[2017-10-30] MEDS: SERTRALINE HCL 100 MG TAB PO SCH (08:25)
[2017-10-30] MEDS: ENOXAPARIN 40 MG/0.4 ML SYR SC SCH (08:25)
--- NOTE | 2017-10-30 09:58 | HOSPPROG ---
Hospitalist Progress Note Assessment/Plan: #Left forearm abscess: s/p bedside I/D. Packing to be removed today #MSSA bacteremia: IV Ancef while here in hospital. Dr. Meeks had long conversation with Juan Antonio ([facility]) and they both agree for less aggressive treatment. -Plan for oral abx rather than PICC and IV abx -remains afebrile, blood cultures from 10/26 remain negative #Dementia/chronic encephalopathy: fall precautions. Will discharge back to memory unit #Leukocytosis: improved on abx #Diet: regular #DVT ppx: lovenox #Disp: cont inpatient admission for IV abx, I&D. Hope to DC in 1-2 days Subjective: no acute events overnight Objective: Vital Signs Temp Pulse Resp BP Pulse Ox 36.4 C 57 L 16 143/73 H 95 10/30/17 07:46 10/30/17 07:46 10/30/17 07:46 10/30/17 07:46 10/30/17 07:46 Microbiology 10/27/17 15:30 Gram Stain - Final Arm - Aspirate 10/25/17 06:00 Blood Culture - Final Blood 10/25/17 06:00 Blood Culture - Final Blood Laboratory Results 10/28/17 04:23 10/29/17 10/30/17 10/31/17 05:59 05:59 05:59 Intake Total 720 150 Balance 720 150 PT 14.0 SEC (12.0-15.0) 10/21/17 14:15 INR 1.06 (0.83-1.16) 10/21/17 14:15 - Time Spent With Patient Time Spent with Patient: greater than 25 minutes Time Spent with Patient: Greater than 25 minutes spent on this patients care, greater than 50% of time spent counseling, educating, and coordinating care regarding the above mentioned plan. - Physical Exam Constitutional: no apparent distress Eyes: PERRL Ears, Nose, Mouth, Throat: moist mucous membranes Cardiovascular: regular rate and rhythym Respiratory: no respiratory distress Genitourinary: No noriega in urethra Skin: warm Musculoskeletal: other (left forearm wrapped, no extending redness. No TTP) Neurologic: CN II-XII Intact Psychiatric: encephalopathic ICD10 Worksheet Patient Problems: Problems Problem Status Onset Cellulitis Acute
--- NOTE | 2017-10-30 13:06 | ASMTCMCOM ---
CM Note CM Note Notes: CM chart review, plan remains d/c to [facility], hopefully in 1-2 days. CM to follow. Current D/C Plan: Return to [facility] when ready. Date Signed: 10/30/2017 01:05 PM Electronically Signed By:Holli Taylor
[2017-10-30] MEDS: MELATONIN 3 MG TAB PO SCH (20:03)
[2017-10-30] MEDS: risperiDONE 1 MG TAB PO SCH (20:03)
[2017-10-30] MEDS: LATANOPROST 0.005% 2.5 ML OPHT DROPS EACHEYE SCH (21:01)
[2017-10-31] MEDS: ACETAMINOPHEN 500 MG TAB PO SCH (05:13)
[2017-10-31] MEDS: ceFAZolin 2 GM/DEXTROSE 100 ML IV SCH (05:13)
[2017-10-31 07:32] VITALS: BP 153/88
[2017-10-31] MEDS: LISINOPRIL 10 MG TAB PO SCH (09:30)
[2017-10-31] MEDS: SENNOSIDES/DOCUSATE SODIUM TAB PO SCH (09:30)
[2017-10-31] MEDS: LORazepam 0.5 MG TAB PO SCH (09:30)
[2017-10-31] MEDS: risperiDONE 0.5 MG TAB PO SCH (09:30)
[2017-10-31] MEDS: ENOXAPARIN 40 MG/0.4 ML SYR SC SCH (09:30)
[2017-10-31] MEDS: SERTRALINE HCL 100 MG TAB PO SCH (09:30)
--- NOTE | 2017-10-31 09:48 | PDIAF ---
- Diagnosis Diagnosis: left arm abscess/cellulitis Code Status: Do Not Resuscitate - Medication Management Discharge Medications: Medications to Continue on Transfer Acetaminophen [Tylenol ES 500 mg (*)] 1,000 mg PO Q8 10/21/17 [Last Taken 14:00] LORazepam [Ativan (*)] 0.5 mg PO BID 10/21/17 [Last Taken 10/21/17 08:00] Latanoprost 0.005% [Xalatan 0.005% (*)] 0 drops EACHEYE HS 10/21/17 [Last Taken 10/20/17] Lisinopril [Zestril 10 mg (*)] 10 mg PO DAILY 10/21/17 [Last Taken 10/21/17] Loperamide HCl [Imodium 2 mg (*)] 2 mg PO PRN PRN 10/21/17 [Last Taken Unknown] Melatonin [Melatonin 3 MG (*)] 6 mg PO HS 10/21/17 [Last Taken 10/20/17] Ondansetron Odt [Zofran Odt 4 mg (*)] 4 mg PO Q6 PRN 10/21/17 [Last Taken Unknown] Sertraline HCl [Zoloft 100mg (*)] 100 mg PO DAILY 10/21/17 [Last Taken 10/21/17] risperiDONE [Risperdal 0.5mg (*)] 0.5 mg PO DAILY 10/21/17 [Last Taken 10/21/17] risperiDONE [Risperdal 1mg (*)] 1 mg PO HS 10/21/17 [Last Taken 10/20/17] Amoxicillin/Clavulanate Pot [Augmentin 875 MG TAB (*)] 875 mg PO BID #8 tab [Last Taken Unknown] Sennosides/Docusate Sodium [Senokot-S] 1 - 2 tab PO BID tab 10/31/17 [Last Taken Unknown] Discharge Medications: Refer to the Discharge Home Medication list for PRN reason. - Orders Services needed: Registered Nurse, Certified Line Prep Cook Diet Recommendation: no restrictions on diet Diet Texture: Regular Texture Diet Wound Care Instructions: Dressing: clean with soap/water. Neosporin, gauze dressing. - Follow Up Care Current Providers and Referrals: Patient,NotPresent [Primary Care Provider] - As per Instructions
--- NOTE | 2017-10-31 10:12 | GDS ---
[f rep st] DISCHARGE SUMMARY DISCHARGE DIAGNOSES: 1. Left forearm abscess/cellulitis. 2. MSSA bacteremia. 3. Dementia/chronic encephalopathy. 4. Leukocytosis. 5. Hypertension. 6. Sepsis. 7. Acute on chronic encephalopathy. HISTORY OF PRESENT ILLNESS: A 77-year-old female with advanced Alzheimer dementia, hypertension. Brought in for a fever. History was obtained from her [id number]-inl and MD KENNEDY, as well as staff at [facility]. She was very weak day of admission, could not get out of bed. She had fevers up to 101. She normally is walking, singing and very talkative. Today she had minimal conversation, was more confused. No recent antibiotics. HOSPITAL COURSE: PROBLEMS: 1. Sepsis: Secondary to left forearm abscess and bacteremia. This has since resolved. 2. Left forearm abscess/cellulitis: initially treated with antibiotics, but abscess formed and Dr. Mancera did I&D. ID and myself had conversation with Juan Antonio who is her MDPOA, and agree for conservative management with oral antibiotics rather than IV. She will be transitioned to Augmentin to complete a total of 2 weeks of antibiotics. 3. MSSA bacteremia: due to acute cellulitis. Again, we do not think she would tolerate a PICC line given she is pulling at things, with her advanced dementia. Will do orals as stated above. 4. Advanced dementia. Return back to her memory care unit. 5. Hypertension. Resume home medications. DISPOSITION: Patient is stable for discharge. MEDICATIONS: New Medications: Augmentin 875 mg twice daily through December 03. PHYSICAL EXAMINATION: VITAL SIGNS: Today, temperature is 36.4, blood pressure 153/80, heart rate in 70s, respirations 18, 93% on room air. GENERAL: No acute distress, restless. HEENT: PERRLA. Moist mucous membranes. CV: Regular. LUNGS: Clear. EXTREMITIES: Left arm with minimal swelling. Packing in place. No tenderness. No overlying erythema. PSYCH: Encephalopathic. No focal deficits. TIME: Time spent on discharger, greater than 30 minutes coordinating care with case management, to SNF. /[id number]/MODL MTDD
--- NOTE | 2017-10-31 10:49 | ASDISCHSUM ---
Discharge Information Plan Status:Halfway Return Medically Cleared to Leave:10/31/2017 Discharge Date:10/31/2017 12:13 PM CM D/C Disposition: ADT D/C Disposition:Longterm Facility Projected Discharge Date:10/31/2017 11:00 AM Transportation at D/C: Discharge Delay Reason: Follow-Up Date:10/31/2017 11:00 AM Discharge Slot: Final Diagnosis: Placement Information Referral Type:*Halfway/SNF Referral ID:[id number] Provider Name:Albert Diaz/Juan CarlosVengaTHERESA Address 1:[address] Phone Number: Address 2: Fax Number: [facility] [place] Selection Factors: State:[place] Patient Contact Information Contact Name:ERROLLENNIE Relationship:Sister Address:[address] [facility] Work Phone: Bear:[facility] Phone: [facility]/Zip Code:[place] [address] Email: Financial Information Financial Class:Medicare Advantage Plans Primary Plan Desc:[employer] ADV IP Primary Plan Number:[id number] Secondary Plan Desc: Secondary Plan Number: Assessment Information LACE LACE Length of stay for Answers: 7-13 days current admission Acuity / Level of Answers: Yes Care: Did the patient have an inpatient admission? Comorbidities - select Answers: Dementia all that apply Other Notes: HTN, glaucoma # of Emergency department Answers: 1-2 visits in the last 6 months Score: 13 Date Signed: 10/31/2017 10:48 AM Electronically Signed By:PARAMJIT Barragan [facility] CM Progress Note CM Note CM Note Notes: Pt admitted for fever, sepsis. History includes advanced Alzheimer's dementia and hypertension. Pt lives at [facility] on the Memory Care Unit. The pt's [id number] is her guardian/MDPOA. Discharge needs remain unclear. Anticipate pt will likely return to [facility] when medically stable. CM will continue to follow for any potential needs or concerns. Current Discharge Plan: [facility] Date Signed: 10/22/2017 04:49 PM Electronically Signed By:Dawna Logan RN [facility] CM Progress Note CM Note CM Note Notes: CM spoke to ALON Salter and Richelle, pharmacist regarding d/c POC. Pt will most likely require iv Ancept at time of d/c. for bacteremia. Pt will return to [facility] once medically stable. CM to follow. Plan: [facility] Date Signed: 10/25/2017 02:37 PM Electronically Signed By:PARAMJIT Barragan [facility] CM Progress Note CM Note CM Note Notes: Spoke w/ and Aubrey from Palliative, pt's MOST form states comfort measures only. Unclear if guardian will continue with IV treatment. Aubrey to arrange palliative consult with MICAELA duenas at [facility] notified. DC Plan: TBD Date Signed: 10/26/2017 12:45 PM Electronically Signed By:Alyssa Jose RN [facility] CM Progress Note CM Note CM Note Notes: Per TRACY SHAH, pt will need I&D on her forearm. She spoke with pt's guardian/MDPOA who gave permission to proceed. D/C plan still is [facility] when medically ready. CM will continue to follow. Date Signed: 10/28/2017 12:28 PM Electronically Signed By:ZEE Cerna [facility] CM Progress Note CM Note CM Note Notes: CM chart review, plan remains d/c to [facility], hopefully in 1-2 days. CM to follow. Current D/C Plan: Return to [facility] when ready. Date Signed: 10/30/2017 01:05 PM Electronically Signed By:Holli Taylor Case Management Discharge Plan Note Case Management Discharge Discharge Order Complete? Answers: Yes Patient to Obtain Answers: Other Notes: [facility] Medications Transportation Arranged Answers: [facility]ret[facility] Transport will Pick (Date 10/31/2017 12:00 PM & Time) SONIA Complete Answers: No Case Management Transport Answers: Yes Form Complete Faxed Final Orders Answers: Yes Agency/Facility Transfer Answers: Yes Report Printed & Faxed to Receiving Agency Family Notified Answers: No Discharge Comments Notes: CM spoke to Dr. Joshi and ALON Omer regarding d/c POC. Pt is being discharged back to [facility] today. CM arranged transportation w/ Geena at [facility]. Geena reports that pt needs to go in a stretcher because she lives at their memory care unit. CM completed PCS form. CM provided ALON Omer w/ phone number to give report. CM sent d/c orders. CM available for changes. Plan: [facility] Date Signed: 10/31/2017 10:46 AM Electronically Signed By:PARAMJIT Barragan Intervention Information Intervention Type:IM-Refused Date of Service:10/31/2017 10:37 AM Patient Type:Inpatient Staff Member:Mirian Miller Hours: Discipline: Severity: Comment:Patients' MDPOA did not "feel comforta ble signing any documents".
[2017-10-31] MEDS ORDERED: CORTISPORIN 15 GM OINTMENT TP ONE (11:15)
== END 2017-10-31 12:13 | DRG 853 ==
LOC: EDUNIT# → F3E 19:45
PROVIDERS: ADMIT Internal Medicine; ATTEND Internal Medicine
PROC: 0J9H3ZX Drainage of Left Lower Arm Subcutaneous Tissue and Fascia, Percutaneous Approach, Diagnostic (ICD-10-PCS; 2017-10-27)
PROC: 0J9F0ZZ Drainage of Left Upper Arm Subcutaneous Tissue and Fascia, Open Approach (ICD-10-PCS; principal; 2017-10-28)
DX: A41.02 Sepsis due to Methicillin resistant Staphylococcus aureus (principal); G93.41 Metabolic encephalopathy; L03.114 Cellulitis of left upper limb; L02.416 Cutaneous abscess of left lower limb; G30.9 Alzheimer's disease, unspecified; F02.80 Dementia in other diseases classified elsewhere, unspecified severity, without behavioral disturbance, psychotic disturbance, mood disturbance, and anxiety
CPT/HCPCS: 83605-PO; 84484-PO; 96365; 97162-GP; 97166-GO; 97530-GO; 97530-GP; 97535-GO; G8987-GO-CM; G8988-GO-CL; J0690; J0696; J1650; J3370

== ENCOUNTER 2018-03-15 00:25 | Inpatient (IN) | payer OTHER, MEDICAID ==
--- NOTE | 2018-03-15 00:44 | EDPHY ---
H & P Stated Complaint: R femur inj, fall, dementia hx Time Seen by Provider: 03/15/18 00:44 HPI/ROS: HPI CHIEF COMPLAINT: Right hip pain. HISTORY OF PRESENT ILLNESS: 78-year-old female, presents to the emergency room from [facility], presents to the emergency room with right hip pain. Patient has advanced dementia. It is unclear exactly when she fell but had x- rays at her facility that shows a right femoral neck fracture. Patient arrives by ambulance complaining of right hip pain. Otherwise atraumatic exam. The patient has a DNR. Past Medical History: Advanced dementia. Past Surgical History: No recent surgical history Social History: Lives at [facility]. Family History: Noncontributory ROS REVIEW OF SYSTEMS: 10 Systems were reviewed and negative with the exception of the elements mentioned in the history of present illness. Exam Constitutional triage nursing summary reviewed, vital signs reviewed, awake/ alert. Eyes normal conjunctivae and sclera, EOMI, PERRLA. HENT normal inspection, atraumatic, moist mucus membranes, no epistaxis, neck supple/ no meningismus, no raccoon eyes. Respiratory clear to auscultation bilaterally, normal breath sounds, no respiratory distress, no wheezing. Cardiovascular rate normal, regular rhythm, no murmur, no edema, distal pulses normal. Gastrointestinal soft, non-tender, no rebound, no guarding, normal bowel sounds, no distension, no pulsatile mass. Genitourinary no CVA tenderness. Musculoskeletal right leg: Good distal pulse, good cap refill, externally rotated and shortened. Tender palpation over the right lateral hip. no midline vertebral tenderness, full range of motion, no calf swelling, no tenderness of extremities, no meningismus, good pulses, neurovascularly intact. Skin pink, warm, & dry, no rash, skin atraumatic. Neurologic awake, alert and oriented x 3, AAOx3, moves all 4 extremities equally, motor intact, sensory intact, CN II-XII intact, normal cerebellar, normal vision, normal speech. Psychiatric normal mood/affect. Heme/Lymph/Immune no lymphadenopathy. Differential Diagnosis: Includes but is not limited to in a particular order hip fracture, pelvis fracture, contusion, soft tissue injury, dehydration, electrolyte disturbance Medical Decision Making: Plan for this patient IV establishment blood draw, x- ray pelvis and right hip, re-evaluate. Re-evaluation: 0120AM: X-rays reviewed this shows a right hip fracture right femoral neck. Patient need to be admitted to the hospitalist service. I spoke with Dr. King who agrees to admit. Spoke with orthopedic surgeon Dr. Bee. Recommends and NPO. Plan for surgery. X-rays reviewed of the pelvis and right hip shows right femoral neck fracture. Chest x-ray reviewed no evidence of acute cardiopulmonary disease. Vital signs stable. Blood work reviewed. Admit to hospitalist service femur fracture. Source: Patient - Personal History Current Tetanus Diphtheria and Acellular Pertussis (TDAP): Yes - Medical/Surgical History Hx Asthma: No Hx Chronic Respiratory Disease: No Hx Diabetes: No Hx Cardiac Disease: No Hx Renal Disease: No Hx Cirrhosis: No Hx Alcoholism: No Hx HIV/AIDS: No Hx Splenectomy or Spleen Trauma: No Other PMH: alzheimers dis, hypertension, glaucoma, anxiety, ETOH abuse, MRSA hx , encephaolopathy, elevated WBC - Social History Smoking Status: Never smoked Constitutional: Initial Vital Signs Temperature (C) 36.4 C 03/15/18 00:29 Heart Rate 84 03/15/18 00:29 Respiratory Rate 17 03/15/18 00:29 Blood Pressure 126/77 H 03/15/18 00:29 O2 Sat (%) 91 L 03/15/18 00:29 O2 Delivery Mode Room Air Allergies/Adverse Reactions: No Known Allergies Allergy (Unverified 03/15/18 00:28) Home Medications: Medication Instructions Recorded Acetaminophen [Tylenol ES 500 mg 1,000 mg PO Q8 10/21/17 (*)] LORazepam [Ativan (*)] 0.5 mg PO BID 10/21/17 Latanoprost 0.005% [Xalatan 0.005% 0 drops EACHEYE HS 10/21/17 (*)] Lisinopril [Zestril 10 mg (*)] 10 mg PO DAILY 10/21/17 Loperamide HCl [Imodium 2 mg (*)] 2 mg PO PRN PRN 10/21/17 Melatonin [Melatonin 3 MG (*)] 6 mg PO HS 10/21/17 Ondansetron Odt [Zofran Odt 4 mg 4 mg PO Q6 PRN 10/21/17 (*)] Sertraline HCl [Zoloft 100mg (*)] 100 mg PO DAILY 10/21/17 risperiDONE [Risperdal 0.5mg (*)] 0.5 mg PO DAILY 10/21/17 risperiDONE [Risperdal 1mg (*)] 1 mg PO HS 10/21/17 Amoxicillin/Clavulanate Pot 875 mg PO BID #8 tab 10/31/17 [Augmentin 875 MG TAB (*)] Sennosides/Docusate Sodium 1 - 2 tab PO BID tab 10/31/17 [Senokot-S] Medical Decision Making - Data Points Laboratory Results: Laboratory Results 03/15/18 00:35 03/15/18 00:35 03/15/18 03/15/18 03/15/18 00:35 00:35 00:35 WBC 10.74 10^3/uL H 10^3/uL (3.80-9.50) RBC 4.56 10^6/uL 10^6/uL (4.18-5.33) Hgb 13.6 g/dL g/dL (12.6-16.3) Hct 41.1 % % (38.0-47.0) MCV 90.1 fL fL (81.5-99.8) MCH 29.8 pg pg (27.9-34.1) MCHC 33.1 g/dL g/dL (32.4-36.7) RDW 13.2 % % (11.5-15.2) Plt Count 214 10^3/uL 10^3/uL (150-400) MPV 9.9 fL fL (8.7-11.7) Neut % (Auto) 80.1 % H % (39.3-74.2) Lymph % (Auto) 12.0 % L % (15.0-45.0) Harvey % (Auto) 6.6 % % (4.5-13.0) Eos % (Auto) 0.2 % L % (0.6-7.6) Baso % (Auto) 0.6 % % (0.3-1.7) Nucleat RBC Rel Count 0.0 % % (0.0-0.2) Absolute Neuts (auto) 8.61 10^3/uL H 10^3/uL (1.70-6.50) Absolute Lymphs (auto) 1.29 10^3/uL 10^3/uL (1.00-3.00) Absolute Monos (auto) 0.71 10^3/uL 10^3/uL (0.30-0.80) Absolute Eos (auto) 0.02 10^3/uL L 10^3/uL (0.03-0.40) Absolute Basos (auto) 0.06 10^3/uL 10^3/uL (0.02-0.10) Absolute Nucleated RBC 0.00 10^3/uL 10^3/uL (0-0.01) Immature Gran % 0.5 % % (0.0-1.1) Immature Gran # 0.05 10^3/uL 10^3/uL (0.00-0.10) PT 14.5 SEC SEC (12.0-15.0) INR 1.11 (0.83-1.16) APTT 27.8 SEC SEC (23.0-38.0) Sodium 145 mEq/L mEq/L (135-145) Potassium 3.8 mEq/L mEq/L (3.3-5.0) Chloride 114 mEq/L H mEq/L (97-110) Carbon Dioxide 24 mEq/l mEq/l (22-31) Anion Gap 7 mEq/L mEq/L (6-14) BUN 20 mg/dL mg/dL (7-23) Creatinine 0.6 mg/dL mg/dL (0.6-1.0) Estimated GFR > 60 Glucose 146 mg/dL H mg/dL (70-100) Calcium 9.3 mg/dL mg/dL (8.5-10.4) Medications Given: Discontinued Medications Sodium Chloride (Ns) 1,000 mls @ 0 mls/hr IV EDNOW ONE; Wide Open PRN Reason: Protocol Stop: 03/15/18 00:49 Last Admin: 03/15/18 00:55 Dose: 1,000 mls Departure - Departure Disposition: [facility] Inpatient Acute Clinical Impression: Femur neck fracture Qualifiers: Encounter type: initial encounter Fracture type: closed Laterality: right Qualified Code(s): S72.001A - Fracture of unspecified part of neck of right femur, initial encounter for closed fracture Condition: Fair Instructions: Hip Fracture (ED) Referrals: KANDICE TRIPLETT [Primary Care Provider] - As per Instructions
[2018-03-15] MEDS ORDERED: NS 1,000 ML IV ONE (00:48)
[2018-03-15 01:00] LABS: PLATELET COUNT 214 10^3/uL (150-400)
[2018-03-15 01:09] LABS: INR 1.11 (0.83-1.16); PROTIME(PATIENT) 14.5 SEC (12.0-15.0)
[2018-03-15] MEDS ORDERED: ONDANSETRON 4 MG/2 ML VIAL IVP PRN ×2 (01:21→16:10)
[2018-03-15] MEDS ORDERED: ACETAMINOPHEN 500 MG TAB PO PRN ×2 (01:21→16:10)
[2018-03-15] MEDS ORDERED: ONDANSETRON DISINTEGRATING 4 MG TAB PO PRN (01:21)
--- NOTE | 2018-03-15 01:50 | PDGENHP ---
History and Physical - Chief Complaint Fall, hip pain - History of Present Illness 78 yo F w/ HTN and advanced Alzheimer's dementia presents after a fall. Patient suffered an unwitnessed fall at [facility] living facility [facility]. She complained about R hip pain afterwards. XR at the facility and here reveal R hip fracture. The situation is greatly complicated by advanced dementia. The patient has a MOST form with documented wishes for comfort care only. Her court appointed guardian and MDPOA is at bedside who confirms these wishes. He does note, however, that she loves to walk and walking frequently is a large component of her remaining quality of life. For these reasons he is interested in hearing what options (surgical and non-surgical) are available to the patient. The case was discussed with ED physician Dr. Peterson; records reviewed in EMR. History Information - Allergies/Home Medication List Allergies/Adverse Reactions: No Known Allergies Allergy (Unverified 03/15/18 00:28) Home Medications: Acetaminophen [Tylenol ES 500 mg (*)] 1,000 mg PO Q8 10/21/17 [Last Taken 14:00] LORazepam [Ativan (*)] 0.5 mg PO BID 10/21/17 [Last Taken 10/21/17 08:00] Latanoprost 0.005% [Xalatan 0.005% (*)] 0 drops EACHEYE HS 10/21/17 [Last Taken 10/20/17] Lisinopril [Zestril 10 mg (*)] 10 mg PO DAILY 10/21/17 [Last Taken 10/21/17] Loperamide HCl [Imodium 2 mg (*)] 2 mg PO PRN PRN 10/21/17 [Last Taken Unknown] Melatonin [Melatonin 3 MG (*)] 6 mg PO HS 10/21/17 [Last Taken 10/20/17] Ondansetron Odt [Zofran Odt 4 mg (*)] 4 mg PO Q6 PRN 10/21/17 [Last Taken Unknown] Sertraline HCl [Zoloft 100mg (*)] 100 mg PO DAILY 10/21/17 [Last Taken 10/21/17] risperiDONE [Risperdal 0.5mg (*)] 0.5 mg PO DAILY 10/21/17 [Last Taken 10/21/17] risperiDONE [Risperdal 1mg (*)] 1 mg PO HS 10/21/17 [Last Taken 10/20/17] I have personally reviewed and updated: family history, medical history - Past Medical History dementia, hypertension - Surgical History Additional surgical history: Unable to provide 2/2 mental status - Family History Additional family history: Unable to provide 2/2 mental status - Social History Smoking Status: Never smoked Review of Systems Review of Systems: Unable to provide 2/2 mental status Physical Exam Physical Exam: Temp Pulse Resp BP Pulse Ox 36.4 C 72 16 144/89 H 92 03/15/18 00:29 03/15/18 01:24 03/15/18 01:24 03/15/18 01:24 03/15/18 01:24 Constitutional: chronically ill appearing, uncomfortable Eyes: PERRL, anicteric sclera Ears, Nose, Mouth, Throat: moist mucous membranes, no oral mucosal ulcers Cardiovascular: regular rate and rhythym, systolic murmur Respiratory: no respiratory distress, clear to auscultation Gastrointestinal: normoactive bowel sounds, soft, non-tender abdomen Skin: warm, normal color Neurologic: other (A&Ox1), No facial droop Psychiatric: interacting appropriately, poor insight, poor judgement, poor memory Lab Data & Imaging Review 03/15/18 00:35 03/15/18 00:35 WBC 10.74 10^3/uL (3.80-9.50) H 03/15/18 00:35 RBC 4.56 10^6/uL (4.18-5.33) 03/15/18 00:35 Hgb 13.6 g/dL (12.6-16.3) 03/15/18 00:35 Hct 41.1 % (38.0-47.0) 03/15/18 00:35 MCV 90.1 fL (81.5-99.8) 03/15/18 00:35 MCH 29.8 pg (27.9-34.1) 03/15/18 00:35 MCHC 33.1 g/dL (32.4-36.7) 03/15/18 00:35 RDW 13.2 % (11.5-15.2) 03/15/18 00:35 Plt Count 214 10^3/uL (150-400) 03/15/18 00:35 MPV 9.9 fL (8.7-11.7) 03/15/18 00:35 Neut % (Auto) 80.1 % (39.3-74.2) H 03/15/18 00:35 Lymph % (Auto) 12.0 % (15.0-45.0) L 03/15/18 00:35 Callahan % (Auto) 6.6 % (4.5-13.0) 03/15/18 00:35 Eos % (Auto) 0.2 % (0.6-7.6) L 03/15/18 00:35 Baso % (Auto) 0.6 % (0.3-1.7) 03/15/18 00:35 Nucleat RBC Rel Count 0.0 % (0.0-0.2) 03/15/18 00:35 Absolute Neuts (auto) 8.61 10^3/uL (1.70-6.50) H 03/15/18 00:35 Absolute Lymphs (auto) 1.29 10^3/uL (1.00-3.00) 03/15/18 00:35 Absolute Monos (auto) 0.71 10^3/uL (0.30-0.80) 03/15/18 00:35 Absolute Eos (auto) 0.02 10^3/uL (0.03-0.40) L 03/15/18 00:35 Absolute Basos (auto) 0.06 10^3/uL (0.02-0.10) 03/15/18 00:35 Absolute Nucleated RBC 0.00 10^3/uL (0-0.01) 03/15/18 00:35 Immature Gran % 0.5 % (0.0-1.1) 03/15/18 00:35 Immature Gran # 0.05 10^3/uL (0.00-0.10) 03/15/18 00:35 PT 14.5 SEC (12.0-15.0) 03/15/18 00:35 INR 1.11 (0.83-1.16) 03/15/18 00:35 APTT 27.8 SEC (23.0-38.0) 03/15/18 00:35 Sodium 145 mEq/L (135-145) 03/15/18 00:35 Potassium 3.8 mEq/L (3.3-5.0) 03/15/18 00:35 Chloride 114 mEq/L (97-110) H 03/15/18 00:35 Carbon Dioxide 24 mEq/l (22-31) 03/15/18 00:35 Anion Gap 7 mEq/L (6-14) 03/15/18 00:35 BUN 20 mg/dL (7-23) 03/15/18 00:35 Creatinine 0.6 mg/dL (0.6-1.0) 03/15/18 00:35 Estimated GFR > 60 03/15/18 00:35 Glucose 146 mg/dL (70-100) H 03/15/18 00:35 Calcium 9.3 mg/dL (8.5-10.4) 03/15/18 00:35 Assessment & Plan Assessment: 78 yo F w/ advanced dementia presents with R femoral neck fracture. Plan: 1. Hip fracture, acute - XR (personally reviewed/interpreted) reveals femoral neck fracture suffered from an unwitnessed fall. The patient has documented comfort-only wishes but does enjoy walking regularly. Her MDPOA would like to explore available options prior to proceeding. - Admit for observation - Maintain NPO - Orthopedic surgery consulted, appreciate assistance - Pain control 2. Advanced Alzheimer's dementia - A&Ox1 at baseline, MDPOA and court-appointed guardian is at bedside. 3. HTN - Continue home medications pending med reconciliation Diet - NPO Code - DNR per MOST form Ppx - SCDs Dispo - Admit under observation status
[2018-03-15 04:16] LABS: PLATELET COUNT 205 10^3/uL (150-400)
[2018-03-15] MEDS ORDERED: HYDROCORTISONE 0.5% CREAM TP PRN (11:34)
[2018-03-15] MEDS ORDERED: D5W 1/2 NS W/ 20 KCl/L 1,000 ML IV SCH (11:45)
--- NOTE | 2018-03-15 11:57 | ASMTCMCOM ---
CM Note CM Note Notes: Pt is a 78 y/o female admitted for femur neck fracture. Pt has advance dementia and lives at [facility]. Benny from [facility] stopped by to see pt. CM sent updates. Pt is having hip surgery today. Pt will most likely be transferred to the Ortho floor afterwards. OT has been ordered. Pts brother in law is the court appointed guardian (P#: [phone]). Pt has a MOST form that states that she is comfort measures only. CM to follow. Plan: [facility] Date Signed: 03/15/2018 11:57 AM Electronically Signed By:PARAMJIT Barragan
[2018-03-15] MEDS: SERTRALINE HCL 100 MG TAB PO SCH (13:16)
[2018-03-15] MEDS: ACETAMINOPHEN 500 MG TAB PO SCH ×2 (13:20→23:12)
[2018-03-15] MEDS: risperiDONE 0.5 MG TAB PO SCH (13:21)
--- NOTE | 2018-03-15 14:35 | HOSPPROG ---
Hospitalist Progress Note Assessment/Plan: Hip fracture, acute - ortho has consulted, will proceed with operative repair for QOL reasons - to OR today, NPO, start IVF's - Pain control - post-op PT/OT Advanced Alzheimer's dementia - A&Ox1 at baseline, MDPOA and court-appointed guardian, Juan Antonio, is at bedside. HTN - Continue home medications pending med reconciliation Diet - NPO Code - DNR per MOST form Ppx - SCD's for now, awaiting OR Dispo - change to inpt for operative repair of hip fracture Subjective: Pt resting comfortably, has some pain. NPO. Objective: Vital Signs Temp Pulse Resp BP Pulse Ox 36.9 C 71 16 127/68 H 90 L 03/15/18 14:01 03/15/18 14:01 03/15/18 14:01 03/15/18 14:01 03/15/18 14:01 Laboratory Results 03/15/18 03:08 03/15/18 03:08 03/14/18 03/15/18 03/16/18 05:59 05:59 05:59 Intake Total 600 Balance 600 PT 14.5 SEC (12.0-15.0) 03/15/18 00:35 INR 1.11 (0.83-1.16) 03/15/18 00:35 - Physical Exam Constitutional: no apparent distress Eyes: PERRL Ears, Nose, Mouth, Throat: moist mucous membranes Cardiovascular: regular rate and rhythym Respiratory: no respiratory distress Skin: warm Psychiatric: encephalopathic, poor memory ICD10 Worksheet Patient Problems: Problems Problem Status Onset Femur neck fracture Acute Cellulitis Acute
[2018-03-15] MEDS ORDERED: BUPIVACAINE 0.5% 30 ML SDV ONE (15:12)
[2018-03-15] MEDS ORDERED: LR 1,000 ML IV ONE (15:25)
--- NOTE | 2018-03-15 15:29 | PDANEPAE ---
ANE History of Present Illness R hip arthroplasty ANE Past Medical History - Cardiovascular History Hx Hypertension: Yes - Pulmonary History Hx Oxygen in Use at Home: No Hx Sleep Apnea: No Sleep Apnea Screening Result - Last Documented: Negative - Endocrine History Hx Diabetes: No - Neurological & Psychiatric Hx Hx Neurological and Psychiatric Disorders: Yes Neurological / Psychiatric History Comment: advanced dementia - Chronic Pain History Chronic Pain: (a&ox1) ANE Review of Systems Review of Systems: - Exercise capacity Exercise capacity: limited by disability, unable to assess ANE Patient History - Allergies Allergies/Adverse Reactions: No Known Allergies Allergy (Unverified 03/15/18 00:28) - Home Medications Home medications: home medication list seen and reviewed Home Medications: Acetaminophen [Tylenol ES 500 mg (*)] 1,000 mg PO Q8 10/21/17 [Last Taken 20:00] LORazepam [Ativan (*)] 0.5 mg PO BID 10/21/17 [Last Taken 03/14/18 20:00] Latanoprost 0.005% [Xalatan 0.005% (*)] 1 drops EACHEYE HS 10/21/17 [Last Taken 03/14/18] Lisinopril [Zestril 10 mg (*)] 10 mg PO DAILY 10/21/17 [Last Taken 03/14/18] Loperamide HCl [Imodium 2 mg (*)] 2 mg PO PRN PRN 10/21/17 [Last Taken 03/07/18] Melatonin [Melatonin 3 MG (*)] 6 mg PO HS 10/21/17 [Last Taken 03/14/18] Ondansetron Odt [Zofran Odt 4 mg (*)] 4 mg PO Q6 PRN 10/21/17 [Last Taken Unknown] Sertraline HCl [Zoloft 100mg (*)] 100 mg PO DAILY06 10/21/17 [Last Taken ] risperiDONE [Risperdal 0.5mg (*)] 0.5 mg PO DAILY 10/21/17 [Last Taken 03/14/18] risperiDONE [Risperdal 1mg (*)] 1 mg PO HS 10/21/17 [Last Taken 03/14/18] Hydrocortisone 0.5% [Hydrocortisone 0.5% cream (*)] 1 jing TP DAILY PRN 03/15/18 [Last Taken 03/07/18] - NPO status NPO Status: no food or drink >8 hours NPO Since - Liquids (Date): 03/14/18 NPO Since - Liquids (Time): 22:30 NPO Since - Solids (Date): 03/14/18 NPO Since - Solids (Time): 22:30 - Anes Hx Anes Hx: no prior problems - Smoking Hx Smoking Status: Never smoked ANE Labs/Vital Signs - Labs Result Diagrams: 03/15/18 03:08 03/15/18 03:08 - Vital Signs Vital Signs: reviewed preoperatively; see RN documention for details Blood Pressure: 127/68 Heart Rate: 71 Respiratory Rate: 16 O2 Sat (%): 90 Height: 167.4 cm Weight: 83.46 kg ANE Physical Exam - Airway Mallampati Score: Unable to assesss - Pulmonary Pulmonary: no respiratory distress - Cardiovascular Cardiovascular: regular rate and rhythym - ASA Status ASA Status: III ANE Anesthesia Plan Anesthesia Plan: GA w LMA
[2018-03-15] MEDS ORDERED: DEXAMETHASONE 4 MG/ML VIAL IVP PRN (16:10)
[2018-03-15] MEDS ORDERED: HYDROCODONE/APAP 5/325 TAB PO PRN (16:10)
[2018-03-15] MEDS ORDERED: NALOXONE HCL 0.4 MG/ML INJ IVP PRN (16:10)
[2018-03-15] MEDS ORDERED: fentaNYL 100 MCG/2 ML INJ IVP PRN (16:10)
[2018-03-15] MEDS ORDERED: oxyCODONE IR 5 MG TAB PO PRN (16:10)
--- NOTE | 2018-03-15 16:10 | POSTANESTH ---
Post Anesthetic Evaluation Cardiovascular Status: Similar to Pre-Op Cond Respiratory Status: Similar to Pre-op Cond. Level of Consciousness/Mental Status: Can Participate in Eval, Moderately Sleepy Pain Control: Adequate, Prn Tx Ordered Nausea/Vomiting Control: Adequate, Prn Tx Ordered Complications Possibly Related to Anesthesia: None Noted
[2018-03-15] MEDS ORDERED: LIDOCAINE 2% 100 MG/5 ML SYR ONE (16:25)
[2018-03-15] MEDS ORDERED: DEXAMETHASONE 4 MG/ML VIAL ONE (16:25)
[2018-03-15] MEDS ORDERED: ONDANSETRON 4 MG/2 ML VIAL ONE (16:25)
[2018-03-15] MEDS ORDERED: PROPOFOL 200 MG/20 ML VIAL ONE (16:25)
[2018-03-15] MEDS ORDERED: fentaNYL 100 MCG/2 ML INJ ONE (16:25)
[2018-03-15] MEDS ORDERED: ceFAZolin 1 GM VIAL ONE ×2 (16:50)
[2018-03-15] MEDS ORDERED: SUGAMMADEX SODIUM 200 MG/2 ML VIAL IVP ONE (18:06)
--- NOTE | 2018-03-15 18:50 | POSTOPPROG ---
Post Op Note Date of Operation: 03/15/18 Surgeon: Elijah Bee Anesthesia: GET(General Endotracheal) Pre-op Diagnosis: R fem neck fx Post-op Diagnosis: same Procedure: R hip hemiarthroplasty Inf/Abcess present in the surg proc area at time of surgery?: No EBL: 50-100
--- NOTE | 2018-03-15 21:24 | GCON ---
REASON FOR CONSULTATION: Right hip injury. HISTORY OF PRESENT ILLNESS: The patient is a 78-year-old household ambulator who sustained a fall, r esulting in right hip pain with limited ability to ambulate secondary to her pain. She denies any pr evious problems relative to her hip. PHYSICAL EXAMINATION: On examination, she is holding her hip in an outwardly rotated position. Ther e is some shortening. She has pain with attempted rotation of her hip. IMAGING: Radiographs show evidence of a displaced mid cervical femoral neck fracture. ASSESSMENT: Right femoral neck fracture. PLAN: It was recommended that operative treatment consisting of a hemiarthroplasty be pursued. /[id number]/MODL
[2018-03-15] MEDS ORDERED: LORazepam 2 MG/ML INJ IVP ONE (22:57)
[2018-03-15] MEDS: LATANOPROST 0.005% 2.5 ML OPHT DROPS EACHEYE SCH (23:14)
[2018-03-15] MEDS: risperiDONE 1 MG TAB PO SCH (23:15)
[2018-03-15] MEDS: LORazepam 0.5 MG TAB PO SCH (23:15)
[2018-03-15] MEDS: MELATONIN 3 MG TAB PO SCH (23:15)
[2018-03-16] MEDS: ACETAMINOPHEN 500 MG TAB PO SCH ×3 (04:18→20:52)
[2018-03-16] MEDS: SERTRALINE HCL 100 MG TAB PO SCH (05:17)
[2018-03-16] MEDS ORDERED: traMADol 50 MG TAB PO PRN (06:28)
--- NOTE | 2018-03-16 08:06 | GOP ---
DATE OF OPERATION: 03/15/18 SURGEON: Elijah Bee MD ANESTHESIA: General. PREOPERATIVE DIAGNOSIS: Right femoral neck fracture. POSTOPERATIVE DIAGNOSIS: Right femoral neck fracture. PROCEDURE PERFORMED: Right hip hemiarthroplasty. FINDINGS: ESTIMATED BLOOD LOSS: Approximately 100 mL. INDICATIONS: The patient is a 78-year-old household ambulator, sustained a fall resulting in a displaced femoral neck fracture. Based on the nature of her injury, it is recommended that a hemiarthroplasty be pursued. The patient and her guardian acknowledged they understood the potential risks including but not limited to bleeding, infection, neurovascular damage leading to loss of limb or limb function, dislocation of the implant, pain or limitations despite operative treatment and anesthetic risks. He acknowledged he understood the potential risks, planned procedure and postoperative plan well. Her guardian gave consent. DESCRIPTION OF PROCEDURE: The patient was brought to the operating room after IV antibiotics were administered. She was placed in supine position where general anesthetic was administered. She was then transferred to a lateral position with pegboard support, axillary roll, and padding bony prominences. The right hip and right lower extremity was prepped and draped in standard sterile fashion. The anterior lateral approach was utilized. A longitudinal incision was made centered on the greater trochanter. Skin and subcutaneous tissue were sharply incised. Sharp dissection was carried down to the gluteal fascia, which was incised in line with the skin incision and extended distally along the fascia overlying the tensor fascia brody. A limited portion of the gluteal attachment was reflected. The hip capsule was identified and released in an H-type manner. A provisional neck cut was made with a saw. Utilizing a corkscrew, the femoral head was removed. The head measured 44. A 44 mm trial was placed and found to have excellent fit. The box osteotome was then utilized to create a lateralizing position for the stem. The canal reamer was then placed by hand. Broaching was performed starting at size 0 and going up to size 4 at which point, excellent fit was obtained. A stem with a 44 mm head was placed and was somewhat difficult to reduce, but upon reducing was very stable with symmetric leg lengths clinically. Definitive size 4 stem with a head and neck extension, 44 mm bipolar head was placed. Closed reduction was performed with some difficulty, but a stable reduction was achieved. Leg lengths were symmetric. Attention was directed towards closure. The capsule was closed with a #1 Vicryl suture in interrupted fashion. The fascia over the fascia brody was closed with #1 Vicryl in an interrupted fashion after reattachment of the reflected portion of the gluteal musculature. The deep tissue was closed with 2 -0 Vicryl suture in interrupted fashion. Subcutaneous tissue closed with 3-0 Vicryl suture in interrupted fashion. Skin closed with skin markie. 0.5% Marcaine without epinephrine was injected in the wound sites. The wounds were dressed with sterile Adaptic, 4 x 4 . The patient tolerated the procedure well and was taken to the recovery room extubated in stable condition postoperatively. An abduction pillow was placed prior to transferring off the bed. DRAINS: None. COMPLICATIONS: None. PLAN: The patient will be admitted for medical management. She will be weightbearing as tolerated on operative extremity. /[id number]/MODL MTDD
[2018-03-16] MEDS: LISINOPRIL 10 MG TAB PO SCH (10:11)
--- NOTE | 2018-03-16 10:40 | PDMN ---
Medical Necessity Medical necessity: Changed to IP as of 03/15/18 per and MCG S-600; los> 2 MN for femur fx requiring R hip hemiarthroplasty s/p fall
[2018-03-16] MEDS: risperiDONE 0.5 MG TAB PO SCH (11:22)
[2018-03-16] MEDS: LORazepam 0.5 MG TAB PO SCH ×3 (11:22→20:51)
--- NOTE | 2018-03-16 16:42 | HOSPPROG ---
Hospitalist Progress Note Assessment/Plan: Hip fracture, acute - s/p IVA per Dr. Bee, POD #1, doing well - Pain control - PT/OT Advanced Alzheimer's dementia - A&Ox1 at baseline, MDPOA and court-appointed guardian, Juan Antonio, remains at bedside. HTN - Controlled, cont lisinopril Diet - regular diet Code - DNR per MOST form Ppx - start lovenox tonight, cleared by ortho Dispo - cont inpt, back to [facility] when ready Subjective: Pt doing well post-op. Up in chair, interacting near baseline. Does not complain of pain. No fevers. Tolerating po. Objective: Vital Signs Temp Pulse Resp BP Pulse Ox 36.8 C 89 14 114/71 97 03/16/18 16:00 03/16/18 16:00 03/16/18 16:00 03/16/18 16:00 03/16/18 16:00 Laboratory Results 03/16/18 08:23 03/16/18 08:23 03/15/18 03/16/18 03/17/18 05:59 05:59 05:59 Intake Total 950 Output Total 630 Balance 320 PT 14.5 SEC (12.0-15.0) 03/15/18 00:35 INR 1.11 (0.83-1.16) 03/15/18 00:35 - Physical Exam Constitutional: no apparent distress Eyes: PERRL Ears, Nose, Mouth, Throat: moist mucous membranes Cardiovascular: regular rate and rhythym Respiratory: no respiratory distress Gastrointestinal: normoactive bowel sounds, soft, non-tender abdomen Skin: warm Musculoskeletal: full muscle strength Psychiatric: encephalopathic, poor memory ICD10 Worksheet Patient Problems: Problems Problem Status Onset Femur neck fracture Acute Cellulitis Acute
[2018-03-16] MEDS: MELATONIN 3 MG TAB PO SCH (20:51)
--- NOTE | 2018-03-16 20:54 | SOAPPROG ---
SOAP Progress Note Assessment/Plan: Assessment: S/P R hip hemiarthroplasty Pt. comfortable Amparo po Dressing intact, mild sang D/C Distal NVI Leg lengths equal Plan: OOB/PT OK for D/C from ortho standpoint when medically stable 03/16/18 20:52 Objective: Vital Signs Temp Pulse Resp BP Pulse Ox 37.7 C 84 16 104/64 98 03/16/18 19:36 03/16/18 19:36 03/16/18 19:36 03/16/18 19:36 03/16/18 19:36 Laboratory Results 03/16/18 08:23 03/16/18 08:23 03/15/18 03/16/18 03/17/18 05:59 05:59 05:59 Intake Total 950 Output Total 630 325 Balance 320 -325 PT 14.5 SEC (12.0-15.0) 03/15/18 00:35 INR 1.11 (0.83-1.16) 03/15/18 00:35 ICD10 Worksheet Patient Problems: Problems Problem Status Onset Femur neck fracture Acute Cellulitis Acute
[2018-03-16] MEDS ORDERED: ENOXAPARIN 40 MG/0.4 ML SYR SC SCH (21:00)
[2018-03-16] MEDS: risperiDONE 1 MG TAB PO SCH (23:48)
[2018-03-16] MEDS: LATANOPROST 0.005% 2.5 ML OPHT DROPS EACHEYE SCH (23:55)
[2018-03-17] MEDS ORDERED: LORazepam 2 MG/ML INJ IVP ONE (03:50)
[2018-03-17] MEDS: ACETAMINOPHEN 500 MG TAB PO SCH ×2 (05:49→10:18)
[2018-03-17] MEDS: SERTRALINE HCL 100 MG TAB PO SCH (06:08)
[2018-03-17] MEDS: risperiDONE 0.5 MG TAB PO SCH (10:18)
[2018-03-17] MEDS: LISINOPRIL 10 MG TAB PO SCH (10:18)
[2018-03-17] MEDS: LORazepam 0.5 MG TAB PO SCH (10:18)
[2018-03-17 11:37] VITALS: BP 101/57
--- NOTE | 2018-03-17 12:55 | PDIAF ---
- Diagnosis Diagnosis: hip fracture s/p hemiarthroplasty Code Status: Do Not Resuscitate - Medication Management Discharge Medications: electronically signed and located in the Home Medication List. PICC Care - Routine: N/A - Orders Services needed: Registered Nurse, Physical Therapy, Occupational Therapy Diet Recommendation: no restrictions on diet Diet Texture: Regular Texture Diet, Thin Liquids, Meds Crushed in Puree Activity/Weight Bearing Restrictions: WBAT - Follow Up Care Current Providers and Referrals: KANDICE TRIPLETT [Primary Care Provider] - As per Instructions Elijah Bee MD [Medical Doctor] -
--- NOTE | 2018-03-17 14:01 | ASMTLACE ---
NAWAFE Length of stay for Answers: 3 days current admission Acuity / Level of Answers: Yes Care: Did the patient have an inpatient admission? Comorbidities - select Answers: Dementia all that apply Other Notes: HTN # of Emergency department Answers: 1-2 visits in the last 6 months Social determinants Answers: History of substance abuse (ETOH, street drugs, prescription drugs, etc.) Mental health diagnosis (anxiety, depression, pers onality disorders, etc.) Score: 17 Date Signed: 03/17/2018 02:01 PM Electronically Signed By:ZEE Arboleda
--- NOTE | 2018-03-17 14:51 | SOAPPROG ---
SOAP Progress Note Assessment/Plan: Assessment: S/P R hip hemiarthroplasty Pt. comfortable Amparo po Dressing intact, mild sang D/C Distal NVI Leg lengths equal Plan: OOB/PT OK for D/C from ortho standpoint when medically stable 03/16/18 20:52 03/17/18 14:50 Resting comfortably Worked repeatedly with PT RLE dressing intact No new D/C Leg lenths equal NV Unchanged OK for D/C from ortho standpoint Objective: Vital Signs Temp Pulse Resp BP Pulse Ox 36.2 C 80 18 101/57 L 91 L 03/17/18 11:36 03/17/18 11:36 03/17/18 11:36 03/17/18 11:36 03/17/18 11:36 Laboratory Results 03/16/18 08:23 03/16/18 08:23 03/16/18 03/17/18 03/18/18 05:59 05:59 05:59 Intake Total 950 Output Total 630 825 Balance 320 -825 PT 14.5 SEC (12.0-15.0) 03/15/18 00:35 INR 1.11 (0.83-1.16) 03/15/18 00:35 ICD10 Worksheet Patient Problems: Problems Problem Status Onset Femur neck fracture Acute Cellulitis Acute
--- NOTE | 2018-03-17 17:29 | ASMTCMCOM ---
CM Note CM Note Notes: Pt medically stable for d/c back to [facility]. Orders sent in [employer]. [facility] stretcher transport scheduled for 1430. ALON Zambrano called report. Date Signed: 03/17/2018 05:29 PM Electronically Signed By:ZEE Arboleda
--- NOTE | 2018-03-17 17:30 | ASDISCHSUM ---
Discharge Information Plan Status:SNF Medically Cleared to Leave: Discharge Date:03/17/2018 04:40 PM CM D/C Disposition:Assisted Facility ADT D/C Disposition:Assisted Facility Projected Discharge Date:03/17/2018 11:00 AM Transportation at D/C:ALS/BLS Discharge Delay Reason: Follow-Up Date:03/17/2018 11:00 AM Discharge Slot: Final Diagnosis: Placement Information Referral Type:*Jail/SNF Referral ID:[id number] Provider Name:[email or web address] Address 1:[address] [facility] Address 2: Fax Number: [facility]:[place] Selection Factors: State:[place] Patient Contact Information Contact Name:ALEKSANDER Relationship:Other Address:[address] [place] [address] Work Phone: [facility] Phone: [facility]/Zip Code:[place] [address] Email: Financial Information Financial Class:Medicare Primary Plan Desc:MEDICARE INPATIENT Primary Plan Number:[id number] Secondary Plan Desc:[place] Secondary Plan Number:[id number] Assessment Information LACE LACE Length of stay for Answers: 3 days current admission Acuity / Level of Answers: Yes Care: Did the patient have an inpatient admission? Comorbidities - select Answers: Dementia all that apply Other Notes: HTN # of Emergency department Answers: 1-2 visits in the last 6 months Social determinants Answers: History of substance abuse (ETOH, street drugs, prescription drugs, etc.) Mental health diagnosis (anxiety, depression, pers onality disorders, etc.) Score: 17 Date Signed: 03/17/2018 02:01 PM Electronically Signed By:ZEE Arbloeda [facility] CM Progress Note CM Note CM Note Notes: Pt is a 78 y/o female admitted for femur neck fracture. Pt has advance dementia and lives at [facility]. Benny from [facility] stopped by to see pt. CM sent updates. Pt is having hip surgery today. Pt will most likely be transferred to the Ortho floor afterwards. OT has been ordered. Pts brother in law is the court appointed guardian (P#: [phone]). Pt has a MOST form that states that she is comfort measures only. CM to follow. Plan: [facility] Date Signed: 03/15/2018 11:57 AM Electronically Signed By:PARAMJIT Barragan [facility] CM Progress Note CM Note CM Note Notes: Pt medically stable for d/c back to [facility]. Orders sent in [employer]. [facility] stretcher transport scheduled for 1430. ALON Zambrano called report. Date Signed: 03/17/2018 05:29 PM Electronically Signed By:ZEE Arboleda Intervention Information Intervention Type:OLMEDO-Not Delivered Date of Service:03/15/2018 11:20 AM Patient Type:Observation Staff Member:Stone Sanchez Hours: Discipline: Severity: Comment:Patient had dementia, so she was unabl e to sign Medicare Form.
--- NOTE | 2018-03-17 18:46 | GDS ---
DISCHARGE DIAGNOSES: 1. Right femoral neck fracture, status post right hemiarthroplasty performed by Dr. Elijah Resendez [facility] 2017. 2. Advanced Alzheimer dementia. 3. Hypertension. CONSULTANTS: Dr. Elijah Bee, Orthopedic Surgery. HISTORY: For details, please see history and physical dated March 15, 2018. In brief, the patient is a 78-year-old female with a history of advanced Alzheimer dementia, who presented to the emergenc y department from [facility] after a fall. It was found she suffered a right hip fracture and she was admitted to the hospital for further management. HOSPITAL COURSE: Patient was admitted to the Medical/Surgical unit. Orthopedic Surgery consultation was obtained. It is noted she was a do not resuscitate; however, it is reported by her caregiver th at she gets significant quality of life from taking walks. Therefore, it was decided to proceed with operative repair of her hip, so she could hopefully maintain quality of life. She underwent a right hemiarthroplasty. She had no postoperative complications. Her vital signs remained stable. She corral d PT and OT evaluations. I think she is stable for discharge back to her [facility] facility fo r ongoing rehab. DISPOSITION: Patient is discharged to [facility] facility in stable condition. FOLLOWUP: Dr. Elijah Bee. DISCHARGE MEDICATIONS: Please see [employer] for completed outpatient medication list. New medications on discharge include: 1. Lovenox 40 mg subcutaneous daily for 20 more doses to complete 21 days of DVT prophylaxis. 2. Tramadol 25-50 mg p.o. q.6 hours p.r.n. #30, no refills. She will continue all other outpatient medications as previously prescribed. Her acetaminophen dose is increased to 1000 mg p.o. q.8 hours scheduled. /[id number]/MODL
== END 2018-03-17 16:40 | DRG 470 ==
LOC: EDUNIT# → F2W 01:55 → OBSVTOIN 14:35 → F3N 15:48
PROVIDERS: ADMIT Student in an Organized Health Care Education/Training Program; ATTEND Student in an Organized Health Care Education/Training Program
PROC: 0SRR0JZ Replacement of Right Hip Joint, Femoral Surface with Synthetic Substitute, Open Approach (ICD-10-PCS; principal; 2018-03-15 16:15)
DX: S72.001A Fracture of unspecified part of neck of right femur, initial encounter for closed fracture (principal); E86.9 Volume depletion, unspecified; G30.9 Alzheimer's disease, unspecified; F02.80 Dementia in other diseases classified elsewhere, unspecified severity, without behavioral disturbance, psychotic disturbance, mood disturbance, and anxiety; I10 Essential (primary) hypertension; Z66 Do not resuscitate; W19.XXXA Unspecified fall, initial encounter; Y92.129 Unspecified place in nursing home as the place of occurrence of the external cause
CPT/HCPCS: 92526-GN; 92610-GN; 97163-GP; 97165-GO; 97530-GO; 97530-GP; 97535-GO; G8978-GP-CM; G8979-GP-CK; G8987-GO-CM; G8988-GO-CL; G8996-GN-CI; G8997-GN-CI; G8998-GN-CH; J0690; J1100; J1650; J2001; J2060; J2405; J2704; J3010

== ENCOUNTER 2018-04-13 01:23 | Inpatient (IN) | payer OTHER, MEDICAID ==
[2018-04-13 01:37] LABS: PLATELET COUNT 205 10^3/uL (150-400)
[2018-04-13 01:44] LABS: INR 1.12 (0.83-1.16); PROTIME(PATIENT) 14.6 SEC (12.0-15.0)
[2018-04-13] MEDS ORDERED: NS 1,000 ML IV ONE ×2 (01:57→02:00)
[2018-04-13] MEDS ORDERED: ONDANSETRON DISINTEGRATING 4 MG TAB PO PRN (02:53)
[2018-04-13] MEDS ORDERED: ACETAMINOPHEN 325 MG TAB PO PRN (02:53)
[2018-04-13] MEDS ORDERED: ONDANSETRON 4 MG/2 ML VIAL IVP PRN (02:53)
[2018-04-13] MEDS ORDERED: D5W 1/2 NS 1,000 ML IV SCH (03:00)
--- NOTE | 2018-04-13 03:07 | EDPHY ---
H & P Stated Complaint: possible sepsis-elevated wbc Time Seen by Provider: 04/13/18 01:29 HPI/ROS: Chief Complaint: Fever, decreased mental status HPI: 70-year-old woman with a history of Alzheimer's dementia from a detention locked unit being brought in for concerns about possible infection. Per the patient's brother in law and detention staff the patient has had some decreased mental status last couple days. No cough. She has had low-grade fevers as well. She was recently admitted at the beginning of last month after a hip fracture and underwent surgical repair. She has been doing well from this standpoint. Patient does have a [facility] most form indicating comfort measures only but she is being brought in at the request of her [id number] for further evaluation. ROS: 10 systems were reviewed and were negative except those elements noted in the HPI. Social History: No smoking, no alcohol, no recreational drug use Family History: non-contributory Physical Exam: Gen: Somnolent, maintaining airway HEENT: Nose: no rhinorrhea Eyes: PERRLA, EOMI Mouth: Very dry mucosa Neck: Supple, no JVD Chest: nontender, lungs clear to auscultation Heart: S1, S2 normal, no murmur Abd: Soft, non-tender, no guarding Back: no CVA tenderness, no midline tenderness Ext: no edema, non-tender Skin: no rash Neuro: CN II-XII intact, Sensation grossly intact, Strength 5/5 in bilateral upper and lower extremities - Medical/Surgical History Hx Asthma: No Hx Chronic Respiratory Disease: No Hx Diabetes: No Hx Cardiac Disease: No Hx Renal Disease: No Hx Cirrhosis: No Hx Alcoholism: No Hx HIV/AIDS: No Hx Splenectomy or Spleen Trauma: No Other PMH: alzheimers dis, hypertension, glaucoma, anxiety, ETOH abuse, MRSA hx , encephaolopathy, elevated WBC - Social History Smoking Status: Never smoked Constitutional: Initial Vital Signs Heart Rate 110 H 04/13/18 02:15 Respiratory Rate 24 H 04/13/18 02:15 Blood Pressure 109/69 04/13/18 02:15 O2 Sat (%) 96 04/13/18 02:15 O2 Delivery Mode Nasal Cannula O2 (L/minute) 2 Allergies/Adverse Reactions: No Known Allergies Allergy (Unverified 04/13/18 01:35) Home Medications: Medication Instructions Recorded Acetaminophen [Tylenol ES 500 mg 1,000 mg PO Q8 10/21/17 (*)] LORazepam [Ativan (*)] 0.5 mg PO BID 10/21/17 Latanoprost 0.005% [Xalatan 0.005% 1 drops EACHEYE HS 10/21/17 (*)] Lisinopril [Zestril 10 mg (*)] 10 mg PO DAILY 10/21/17 Loperamide HCl [Imodium 2 mg (*)] 2 mg PO PRN PRN 10/21/17 Melatonin [Melatonin 3 MG (*)] 6 mg PO HS 10/21/17 Ondansetron Odt [Zofran Odt 4 mg 4 mg PO Q6 PRN 10/21/17 (*)] Sertraline HCl [Zoloft 100mg (*)] 100 mg PO DAILY06 10/21/17 risperiDONE [Risperdal 0.5mg (*)] 0.5 mg PO DAILY 10/21/17 risperiDONE [Risperdal 1mg (*)] 1 mg PO HS 10/21/17 Hydrocortisone 0.5% 1 jing TP DAILY PRN 03/15/18 [Hydrocortisone 0.5% cream (*)] Enoxaparin [Lovenox 40 MG (*)] 40 mg SC HS #20 syr 03/17/18 traMADol [Ultram 50 mg (*)] 25 - 50 mg PO Q6HRS PRN #30 tab 03/17/18 Medical Decision Making - Diagnostics Imaging Results: Chest x-ray shows no focal infiltrate per my interpretation. Imaging: I viewed and interpreted images myself ED Course/Re-evaluation: 78-year-old woman being brought in for fever and altered mental status. She has got a borderline blood pressure here and is tachycardic. Per EMS report she has a leukocytosis at the detention fever. Will start down the sepsis pathway and further evaluate. Patient is clinically very dehydrated. Will continue to aggressively hydrate intravenously. Patient's lactate is normal. Does have a leukocytosis of 13. Urinalysis is negative for UTI. Does not have a focal source of infection at this time. She is significantly dehydrated based on her clinical exam and on her laboratory evaluations. I have discussed with Dr. King, hospitalist. He will admit to his service for further hydration further evaluation of possible infectious source. - Data Points Laboratory Results: Laboratory Results 04/13/18 01:30 04/13/18 01:30 04/13/18 04/13/18 04/13/18 02:10 01:55 01:30 WBC RBC Hgb Hct MCV MCH MCHC RDW Plt Count MPV Neut % (Auto) Lymph % (Auto) Castro % (Auto) Eos % (Auto) Baso % (Auto) Nucleat RBC Rel Count Absolute Neuts (auto) Absolute Lymphs (auto) Absolute Monos (auto) Absolute Eos (auto) Absolute Basos (auto) Absolute Nucleated RBC Immature Gran % Immature Gran # PT 14.6 SEC SEC (12.0-15.0) INR 1.12 (0.83-1.16) APTT 23.6 SEC SEC (23.0-38.0) VBG Lactic Acid Sodium Potassium Chloride Carbon Dioxide Anion Gap BUN Creatinine Estimated GFR Glucose Calcium Total Bilirubin Urine Color YELLOW Urine Appearance HAZY Urine pH 5.0 (5.0-7.5) Ur Specific [place] 1.023 (1.002-1.030) Urine Protein NEGATIVE (NEGATIVE) Urine Ketones NEGATIVE (NEGATIVE) Urine Blood NEGATIVE (NEGATIVE) Urine Nitrate NEGATIVE (NEGATIVE) Urine Bilirubin NEGATIVE (NEGATIVE) Urine Urobilinogen NEGATIVE EU EU (0.2-1.0) Ur Leukocyte Esterase 1+ H (NEGATIVE) Urine RBC NONE SEEN /hpf /hpf (0-3) Urine WBC 5-10 /hpf H /hpf (0-3) Ur Epithelial Cells TRACE /lpf /lpf (NONE-1+) Hyaline Casts 1-5 /lpf /lpf (0-1) Urine Mucus TRACE /lpf /lpf (NONE-1+) Urine Glucose NEGATIVE (NEGATIVE) Nasal Influenza A PCR NEGATIVE FOR FLU A (NEGATIVE) Nasal Influenza B PCR NEGATIVE FOR FLU B (NEGATIVE) 04/13/18 04/13/18 04/13/18 01:30 01:30 01:30 WBC 13.01 10^3/uL H 10^3/uL (3.80-9.50) RBC 4.11 10^6/uL L 10^6/uL (4.18-5.33) Hgb 12.1 g/dL L g/dL (12.6-16.3) Hct 39.3 % % (38.0-47.0) MCV 95.6 fL fL (81.5-99.8) MCH 29.4 pg pg (27.9-34.1) MCHC 30.8 g/dL L g/dL (32.4-36.7) RDW 13.9 % % (11.5-15.2) Plt Count 205 10^3/uL 10^3/uL (150-400) MPV 11.4 fL fL (8.7-11.7) Neut % (Auto) 80.0 % H % (39.3-74.2) Lymph % (Auto) 13.0 % L % (15.0-45.0) Castro % (Auto) 5.9 % % (4.5-13.0) Eos % (Auto) 0.1 % L % (0.6-7.6) Baso % (Auto) 0.5 % % (0.3-1.7) Nucleat RBC Rel Count 0.0 % % (0.0-0.2) Absolute Neuts (auto) 10.41 10^3/uL H 10^3/uL (1.70-6.50) Absolute Lymphs (auto) 1.69 10^3/uL 10^3/uL (1.00-3.00) Absolute Monos (auto) 0.77 10^3/uL 10^3/uL (0.30-0.80) Absolute Eos (auto) 0.01 10^3/uL L 10^3/uL (0.03-0.40) Absolute Basos (auto) 0.07 10^3/uL 10^3/uL (0.02-0.10) Absolute Nucleated RBC 0.00 10^3/uL 10^3/uL (0-0.01) Immature Gran % 0.5 % % (0.0-1.1) Immature Gran # 0.06 10^3/uL 10^3/uL (0.00-0.10) PT INR APTT VBG Lactic Acid 1.5 mmol/L mmol/L (0.7-2.1) Sodium 153 mEq/L H mEq/L (135-145) Potassium 4.5 mEq/L mEq/L (3.3-5.0) Chloride 118 mEq/L H mEq/L (97-110) Carbon Dioxide 26 mEq/l mEq/l (22-31) Anion Gap 9 mEq/L mEq/L (6-14) BUN 76 mg/dL H mg/dL (7-23) Creatinine 1.5 mg/dL H mg/dL (0.6-1.0) Estimated GFR 34 Glucose 159 mg/dL H mg/dL (70-100) Calcium 9.6 mg/dL mg/dL (8.5-10.4) Total Bilirubin 0.1 mg/dL mg/dL (0.1-1.4) Urine Color Urine Appearance Urine pH Ur Specific [place] Urine Protein Urine Ketones Urine Blood Urine Nitrate Urine Bilirubin Urine Urobilinogen Ur Leukocyte Esterase Urine RBC Urine WBC Ur Epithelial Cells Hyaline Casts Urine Mucus Urine Glucose Nasal Influenza A PCR Nasal Influenza B PCR Medications Given: Discontinued Medications Sodium Chloride (Ns) 1,000 mls @ 0 mls/hr IV EDNOW ONE; Wide Open PRN Reason: Protocol Stop: 04/13/18 01:58 Last Admin: 04/13/18 01:58 Dose: 1,000 mls Departure - Departure Disposition: [facility] Inpatient Acute Clinical Impression: Dehydration Condition: Fair Referrals: KANDICE TRIPLETT [Primary Care Provider] - As per Instructions
--- NOTE | 2018-04-13 03:23 | PDGENHP ---
History and Physical - Chief Complaint Fever, lethargy - History of Present Illness 78 yo F w/ advanced dementia, HTN, and recent R hip fx s/p surgical repair presents with fever and lethargy. The history is limited as patient is currently non-verbal. Her caregiver/MDPOA is at bedside but the patient lives in a memory care facility so details are limited. Per her caregiver, the patient has been displaying lethargy and a fever at her facility. Apparently she has also fallen. In the ED she has a temperature of 37.9, is tachycardic, and has an elevated WBC. CXR and UA are not consistent with infection. During my evaluation she is displaying labored breathing but her O2 sats are only borderline (89-92%) on RA. Patient has a MOST form with DNR, comfort only wishes. However, her MDPOA does wish for fluids and antibiotics. Case discussed with ED physician Dr. Densno; records reviewed and summarized above. History Information - Allergies/Home Medication List Allergies/Adverse Reactions: No Known Allergies Allergy (Unverified 04/13/18 01:35) Home Medications: Acetaminophen [Tylenol ES 500 mg (*)] 1,000 mg PO Q8 10/21/17 [Last Taken 20:00] LORazepam [Ativan (*)] 0.5 mg PO BID 10/21/17 [Last Taken 03/14/18 20:00] Latanoprost 0.005% [Xalatan 0.005% (*)] 1 drops EACHEYE HS 10/21/17 [Last Taken 03/14/18] Lisinopril [Zestril 10 mg (*)] 10 mg PO DAILY 10/21/17 [Last Taken 03/14/18] Loperamide HCl [Imodium 2 mg (*)] 2 mg PO PRN PRN 10/21/17 [Last Taken 03/07/18] Melatonin [Melatonin 3 MG (*)] 6 mg PO HS 10/21/17 [Last Taken 03/14/18] Ondansetron Odt [Zofran Odt 4 mg (*)] 4 mg PO Q6 PRN 10/21/17 [Last Taken Unknown] Sertraline HCl [Zoloft 100mg (*)] 100 mg PO DAILY06 10/21/17 [Last Taken ] risperiDONE [Risperdal 0.5mg (*)] 0.5 mg PO DAILY 10/21/17 [Last Taken 03/14/18] risperiDONE [Risperdal 1mg (*)] 1 mg PO HS 10/21/17 [Last Taken 03/14/18] Hydrocortisone 0.5% [Hydrocortisone 0.5% cream (*)] 1 jing TP DAILY PRN 03/15/18 [Last Taken 03/07/18] I have personally reviewed and updated: family history, medical history - Past Medical History dementia, hypertension - Surgical History Additional surgical history: Unable to provide 2/2 mental status - Family History Additional family history: Unable to provide 2/2 mental status - Social History Smoking Status: Never smoked Review of Systems Review of Systems: Unable to provide 2/2 mental status Physical Exam Physical Exam: Temp Pulse Resp BP Pulse Ox 37.9 C 111 H 24 H 107/74 96 04/13/18 02:26 04/13/18 02:26 04/13/18 02:26 04/13/18 02:26 04/13/18 02:26 Constitutional: chronically ill appearing, uncomfortable Eyes: PERRL, anicteric sclera Ears, Nose, Mouth, Throat: moist mucous membranes, no oral mucosal ulcers Cardiovascular: no murmur, rub, or gallop, tachycardia Respiratory: reduced air movement, respiratory distress Gastrointestinal: normoactive bowel sounds, soft, non-tender abdomen Skin: warm, normal color Musculoskeletal: no muscle tenderness, no joint effusions Neurologic: other (Lethargic, unable to assess orientation), No facial droop Psychiatric: encephalopathic, poor insight, poor memory Lab Data & Imaging Review 04/13/18 01:30 04/13/18 01:30 WBC 13.01 10^3/uL (3.80-9.50) H 04/13/18 01:30 RBC 4.11 10^6/uL (4.18-5.33) L 04/13/18 01:30 Hgb 12.1 g/dL (12.6-16.3) L 04/13/18 01:30 Hct 39.3 % (38.0-47.0) 04/13/18 01:30 MCV 95.6 fL (81.5-99.8) 04/13/18 01:30 MCH 29.4 pg (27.9-34.1) 04/13/18 01:30 MCHC 30.8 g/dL (32.4-36.7) L 04/13/18 01:30 RDW 13.9 % (11.5-15.2) 04/13/18 01:30 Plt Count 205 10^3/uL (150-400) 04/13/18 01:30 MPV 11.4 fL (8.7-11.7) 04/13/18 01:30 Neut % (Auto) 80.0 % (39.3-74.2) H 04/13/18 01:30 Lymph % (Auto) 13.0 % (15.0-45.0) L 04/13/18 01:30 [place] % (Auto) 5.9 % (4.5-13.0) 04/13/18 01:30 Eos % (Auto) 0.1 % (0.6-7.6) L 04/13/18 01:30 Baso % (Auto) 0.5 % (0.3-1.7) 04/13/18 01:30 Nucleat RBC Rel Count 0.0 % (0.0-0.2) 04/13/18 01:30 Absolute Neuts (auto) 10.41 10^3/uL (1.70-6.50) H 04/13/18 01:30 Absolute Lymphs (auto) 1.69 10^3/uL (1.00-3.00) 04/13/18 01:30 Absolute Monos (auto) 0.77 10^3/uL (0.30-0.80) 04/13/18 01:30 Absolute Eos (auto) 0.01 10^3/uL (0.03-0.40) L 04/13/18 01:30 Absolute Basos (auto) 0.07 10^3/uL (0.02-0.10) 04/13/18 01:30 Absolute Nucleated RBC 0.00 10^3/uL (0-0.01) 04/13/18 01:30 Immature Gran % 0.5 % (0.0-1.1) 04/13/18 01:30 Immature Gran # 0.06 10^3/uL (0.00-0.10) 04/13/18 01:30 PT 14.6 SEC (12.0-15.0) 04/13/18 01:30 INR 1.12 (0.83-1.16) 04/13/18 01:30 APTT 23.6 SEC (23.0-38.0) 04/13/18 01:30 VBG Lactic Acid 1.5 mmol/L (0.7-2.1) 04/13/18 01:30 Sodium 153 mEq/L (135-145) H 04/13/18 01:30 Potassium 4.5 mEq/L (3.3-5.0) 04/13/18 01:30 Chloride 118 mEq/L (97-110) H 04/13/18 01:30 Carbon Dioxide 26 mEq/l (22-31) 04/13/18 01:30 Anion Gap 9 mEq/L (6-14) 04/13/18 01:30 BUN 76 mg/dL (7-23) H 04/13/18 01:30 Creatinine 1.5 mg/dL (0.6-1.0) H 04/13/18 01:30 Estimated GFR 34 04/13/18 01:30 Glucose 159 mg/dL (70-100) H 04/13/18 01:30 Calcium 9.6 mg/dL (8.5-10.4) 04/13/18 01:30 Total Bilirubin 0.1 mg/dL (0.1-1.4) 04/13/18 01:30 Urine Color YELLOW 04/13/18 02:10 Urine Appearance HAZY 04/13/18 02:10 Urine pH 5.0 (5.0-7.5) 04/13/18 02:10 Ur Specific [place] 1.023 (1.002-1.030) 04/13/18 02:10 Urine Protein NEGATIVE (NEGATIVE) 04/13/18 02:10 Urine Ketones NEGATIVE (NEGATIVE) 04/13/18 02:10 Urine Blood NEGATIVE (NEGATIVE) 04/13/18 02:10 Urine Nitrate NEGATIVE (NEGATIVE) 04/13/18 02:10 Urine Bilirubin NEGATIVE (NEGATIVE) 04/13/18 02:10 Urine Urobilinogen NEGATIVE EU (0.2-1.0) 04/13/18 02:10 Ur Leukocyte Esterase 1+ (NEGATIVE) H 04/13/18 02:10 Urine RBC NONE SEEN /hpf (0-3) 04/13/18 02:10 Urine WBC 5-10 /hpf (0-3) H 04/13/18 02:10 Ur Epithelial Cells TRACE /lpf (NONE-1+) 04/13/18 02:10 Hyaline Casts 1-5 /lpf (0-1) 04/13/18 02:10 Urine Mucus TRACE /lpf (NONE-1+) 04/13/18 02:10 Urine Glucose NEGATIVE (NEGATIVE) 04/13/18 02:10 Nasal Influenza A PCR NEGATIVE FOR FLU A (NEGATIVE) 04/13/18 01:55 Nasal Influenza B PCR NEGATIVE FOR FLU B (NEGATIVE) 04/13/18 01:55 Visualized and Interpreted Chest x-ray results: Yes Chest X-Ray results: no infiltrate Assessment & Plan Assessment: 78 yo F w/ advanced dementia presents with dehydration and likely infectious process. Plan: 1. SIRS - Tachycardia, elevated WBC, and T of 37.9 noted on presentation. These signs point to infectious etiology but source is unclear. Patient is unable to provide any history regarding symptoms. CXR (personally reviewed/interpreted) is unchanged from prior comparisons; UA non-infectious. R hip incision does not appear infected. A viral infection is probably the most likely explanation at this time. Lactate WNL, which is reassuring. - Admit for observation - S/p 2 L IVF, continue mIVF - APAP PRN for fever - Blood cultures ordered - Will obtain respiratory PCR and procalcitonin - Will observe off of antibiotics, low threshold to start empiric, broad coverage if worsening 2. Acute metabolic encephalopathy - Likely related to infection; patient lethargic during my evaluation and clearly worsened from her baseline. - Acute management as above - Avoid centrally acting medications 3. AHRF - Patient in visible respiratory distress but only requiring 2 L/min via NC to maintain O2 sats >90%. I suspect a significant component of this is due to her depressed mental status. CXR does not reveal clear pneumonia. - O2 PRN to maintain O2 sats >90%, wean as able 4. TARIQ - 2/2 dehydration in the setting of suspected infection. - S/p 2 L IVF, continue mIVF overnight - Monitor BMP 5. Hypernatremia - A signal of significant lack of access to free water noting poor mental status. - D5-1/2 NS overnight, monitor BMP 6. Advanced dementia - Lives in memory care unit. DNR per MOST form with wishes for comfort care only. However, per MDPOA, fluids and antibiotics are compatible with her goals of care. 7. HTN - Hold home medications in setting of suspected infection. Diet - NPO pending improvement in mental status Code - DNR per MOST form Ppx - [facility] Dispo - Admit under observation status
[2018-04-13] MEDS: HEPARIN 5,000 UNIT/0.5 ML INJ SC SCH ×3 (05:23→22:20)
[2018-04-13 08:48] LABS: PLATELET COUNT 155 10^3/uL (150-400)
[2018-04-13] MEDS ORDERED: LR 1,000 ML IV SCH (13:30)
--- NOTE | 2018-04-13 13:43 | WOCRNPDOC ---
WOCRN Advanced Assessment Note - Skin Integrity Problem, Advanced Assess Left Lower Sacrum Pressure Injury Dressing Type: Mepilex Border Dressing Description: Clean/Dry, Intact Closure Description: Approximated Integumentary Issue Intervention: Visualized Under Dressing Diann Wound Tissue: Scarred Diann Wound Swelling: None Site Measurement - Head-to-Toe Length X Width X Depth (cm): 2.4x0.4x scar Pressure Injury Present on Admit: Yes Skin Integrity Problem Comment: Patient plan of care discussed with ALON Joshi. Patient is immobile. Patient has healed and scarred present on admission pressure injury, at least stage 2. Wound care will not follow. Please reconsult PRN if wound reopens.
[2018-04-13] MEDS ORDERED: NON-FORMULARY NEW DRUG (Ondansetron Hcl [Zofran] 4 MG) PO PRN (14:19)
[2018-04-13] MEDS ORDERED: LOPERAMIDE HCL 2 MG CAP PO PRN (14:19)
[2018-04-13] MEDS ORDERED: traMADol 50 MG TAB PO PRN (14:19)
[2018-04-13] MEDS ORDERED: HYDROCORTISONE 0.5% CREAM TP PRN (14:19)
--- NOTE | 2018-04-13 14:29 | ASMTCMCOM ---
CM Note CM Note Notes: Pt discussed with MD and RN. Pt being treated for dehydration and possible infection. Pt is DNR and MOST in chart. Pt's brother in law, Casper Camacho ([phone]) is guardian. Pt is resident at [facility]. MD recommending Hospice. Referral needed. CM to follow. Plan: [facility] with Hospice. Date Signed: 04/13/2018 02:28 PM Electronically Signed By:PARAMJIT Jones
--- NOTE | 2018-04-13 15:00 | HOSPPROG ---
Hospitalist Progress Note Assessment/Plan: 78 yo F w/ advanced dementia presents with dehydration and likely infectious process. First encounter, chart reviewed. Plan: #SIRS - Tachycardia, elevated WBC, and T of 37.9 noted on presentation. - infectious etiology but source is unclear. - Patient is unable to provide any history regarding symptoms. - CXR (personally reviewed) is unchanged from prior comparisons; - UA non-infectious. - R hip incision does not appear infected. - A viral infection is probably the most likely explanation at this time. - S/p 2 L IVF, continue mIVF - APAP PRN for fever - Blood cultures pending - respiratory PCR negative - procalcitonin mildly elevated - Will observe off of antibiotics, low threshold to start empiric, broad coverage if worsening #Acute metabolic encephalopathy - Likely related to infection - suddenly awake and returned to baseline - Acute management as above - Avoid centrally acting medications # AHRF - on room air - O2 PRN to maintain O2 sats >90%, wean as able #TARIQ - 2/2 dehydration in the setting of suspected infection. - S/p 2 L IVF, continue mIVF overnight - Monitor BMP # Hypernatremia - A signal of significant lack of access to free water noting poor mental status. - change to LR - recheck labs in am # Advanced dementia - Lives in memory care unit. - DNR per MOST form with wishes for comfort care only. - PT states she does not want to be in the hospital - will order Hospice eval - D/W Rn and CM # HTN - restart home meds if able Diet - advance to regular now that alert Code - DNR per MOST form Ppx - [facility] Dispo - Change to inpt status Hospice consult recheck labs in am Subjective: I want to leave the hospital. No pain. I need to go to the bathroom. Objective: Vital Signs Temp Pulse Resp BP Pulse Ox 36.6 C 91 28 H 109/51 L 98 04/13/18 11:11 04/13/18 11:11 04/13/18 11:11 04/13/18 11:11 04/13/18 11:11 Laboratory Results 04/13/18 08:28 04/13/18 08:28 04/12/18 04/13/18 04/14/18 05:59 05:59 05:59 Intake Total 1999 Balance 1999 PT 14.6 SEC (12.0-15.0) 04/13/18 01:30 INR 1.12 (0.83-1.16) 04/13/18 01:30 - Physical Exam Constitutional: not in pain, chronically ill appearing, unkempt Eyes: PERRL, anicteric sclera, EOMI Ears, Nose, Mouth, Throat: moist mucous membranes, hearing normal, ears appear normal Cardiovascular: No JVD, No tachycardia, No edema Respiratory: no respiratory distress, no rales or rhonchi, reduced air movement Gastrointestinal: normoactive bowel sounds, No tenderness, No ascites Skin: warm, normal color, No mottled Musculoskeletal: normal joint ROM, no joint effusions, generalized weakness Neurologic: No AAOx3 Psychiatric: anxious, poor insight, poor judgement, poor memory, No thought process linear ICD10 Worksheet Patient Problems: Problems Problem Status Onset Cellulitis Acute Femur neck fracture Acute Dehydration Acute
[2018-04-13] MEDS: ACETAMINOPHEN 500 MG TAB PO SCH ×2 (15:46→22:21)
[2018-04-13] MEDS: risperiDONE 1 MG TAB PO SCH (22:21)
[2018-04-13] MEDS: LORazepam 0.5 MG TAB PO SCH (22:21)
[2018-04-13] MEDS: LATANOPROST 0.005% 2.5 ML OPHT DROPS EACHEYE SCH (22:30)
[2018-04-14] MEDS: HEPARIN 5,000 UNIT/0.5 ML INJ SC SCH ×3 (05:13→21:13)
[2018-04-14] MEDS: ACETAMINOPHEN 500 MG TAB PO SCH ×5 (08:10→20:54)
[2018-04-14] MEDS: SERTRALINE HCL 100 MG TAB PO SCH (08:10)
[2018-04-14] MEDS: LORazepam 0.5 MG TAB PO SCH ×2 (08:10→20:44)
[2018-04-14] MEDS: risperiDONE 0.5 MG TAB PO SCH (08:10)
[2018-04-14] MEDS ORDERED: ENOXAPARIN 40 MG/0.4 ML SYR SC SCH (09:00)
--- NOTE | 2018-04-14 13:59 | PDMN ---
Medical Necessity Medical necessity: Pt meets Ip criteria per MD and MCG M-160 (Sepsis); los > 2 mn for ongoing tx and management of SIRS (tachycardia, febrile, elevated WBC) with unknown origin, acute metabolic encephalopathy, TARIQ, and AHRF; requiring IVF, hospice consult, and therapies.
--- NOTE | 2018-04-14 15:10 | HOSPPROG ---
Hospitalist Progress Note Assessment/Plan: 78 yo F w/ advanced dementia presents with dehydration and likely a viral infectious process. Was recently dc earlier this month after sustaining a right femoral neck fx s/p hemiarthroplasty. First encounter, chart reviewed. *dehydration -suspect Ashley was not eating or drinking unless someone was watching her closely -her dementia is quite severe -she probably doesn't eat or drink unless someone assists her *hypernatremia -per staff is starting to eat and drink -will recheck labs in the morning *SIRS -most likely a viral syndrome but she is unable to tell me if anything is bothering her -evaluated her incision which looks well healed -chest x ray shows no acute infection, ua is stable -respiratory PCR is negative -Blood cx show no growth -Procalcitonin is mildly elevated -tachycardia has resolved -lactate is stable * Acute metabolic encephalopathy on chronic - has underlying severe Alzheimer - she improved with fluids - awake and can tell me she is from [place] # AHRF - on room air #TARIQ -resolved, 2/2 dehydration # Advanced dementia - Lives in memory care unit. - DNR per MOST form with wishes for comfort care only. # HTN - restart home meds if able *Plan: agree w the Hospice evaluation, Ashley likely doesn't eat or drink unless someone assists her at all time, her dementia is quite severe. Would recommend Palliative care on dc and comfort care measures. Subjective: Ashley is unable to tell me if anything hurts. Objective: Vital Signs Temp Pulse Resp BP Pulse Ox 36.5 C 79 16 111/70 95 04/14/18 12:00 04/14/18 12:00 04/14/18 12:00 04/14/18 12:00 04/14/18 12:00 Laboratory Results 04/14/18 07:09 04/13/18 04/14/18 04/15/18 05:59 05:59 05:59 Output Total 600 Balance -600 PT 14.6 SEC (12.0-15.0) 04/13/18 01:30 INR 1.12 (0.83-1.16) 04/13/18 01:30 - Physical Exam Constitutional: chronically ill appearing Eyes: PERRL Ears, Nose, Mouth, Throat: hearing normal, poor dentition, other (tongue dry) Cardiovascular: regular rate and rhythym Respiratory: no respiratory distress Gastrointestinal: normoactive bowel sounds Skin: warm, other (right hip incision clear, no redness, well healed) Neurologic: other (alert, only oriented to her name) Psychiatric: interacting appropriately, poor memory ICD10 Worksheet Patient Problems: Problems Problem Status Onset Dehydration Acute Cellulitis Acute Femur neck fracture Acute
[2018-04-14] MEDS: risperiDONE 1 MG TAB PO SCH (20:44)
[2018-04-14] MEDS: LATANOPROST 0.005% 2.5 ML OPHT DROPS EACHEYE SCH (20:52)
[2018-04-15] MEDS: HEPARIN 5,000 UNIT/0.5 ML INJ SC SCH (05:06)
--- NOTE | 2018-04-15 09:34 | HOSPPROG ---
Hospitalist Progress Note Assessment/Plan: 78 yo F w/ advanced dementia presents with dehydration and likely a viral infectious process. Was recently dc earlier this month after sustaining a right femoral neck fx s/p hemiarthroplasty. *dehydration -suspect Ashley was not eating or drinking unless someone was watching her closely -her dementia is quite severe -she probably doesn't eat or drink unless someone assists her *hypernatremia -resolved -appreciate the nursing staff feeding her and giving her water throughout the day *SIRS -most likely a viral syndrome but she is unable to tell me if anything is bothering her -evaluated her incision which looks well healed -chest x ray shows no acute infection, ua is stable -respiratory PCR is negative -Blood cx show no growth -Procalcitonin is mildly elevated -tachycardia has resolved -lactate is stable -no fevers * Acute metabolic encephalopathy on chronic - has underlying severe Alzheimer - she improved with fluids - awake and can tell me she is from [place] # AHRF - on room air #TARIQ -resolved, 2/2 dehydration # Advanced dementia - Lives in memory care unit. # HTN - restart home meds if able *Plan: Juan Antonio has spoken w [facility] and they did not see a criteria for her qualifying for hospice. He is her MPOA, he will f/u with them, explained to Juan Antonio her dementia is so severe that she doesn't initiate eating and drinking on her own. Subjective: Ashley nods and smiles but doesn't converse. Objective: Vital Signs Temp Pulse Resp BP Pulse Ox 36.4 C 80 16 105/70 95 04/15/18 08:00 04/15/18 08:00 04/15/18 08:00 04/15/18 08:00 04/15/18 08:00 Laboratory Results 04/15/18 04:00 04/14/18 04/15/18 04/16/18 05:59 05:59 05:59 Intake Total 820 50 Output Total 600 225 Balance -600 595 50 PT 14.6 SEC (12.0-15.0) 04/13/18 01:30 INR 1.12 (0.83-1.16) 04/13/18 01:30 - Physical Exam Constitutional: no apparent distress, appears nourished, chronically ill appearing Eyes: PERRL Ears, Nose, Mouth, Throat: hearing normal Cardiovascular: regular rate and rhythym Respiratory: no respiratory distress Gastrointestinal: normoactive bowel sounds Skin: warm Neurologic: other (alert) ICD10 Worksheet Patient Problems: Problems Problem Status Onset Cellulitis Acute Femur neck fracture Acute Dehydration Acute
--- NOTE | 2018-04-15 09:53 | PDIAF ---
- Diagnosis Diagnosis: dehydration, hypernatremia, viral syndrome Code Status: Do Not Resuscitate - Medication Management Discharge Medications: electronically signed and located in the Home Medication List. PICC Care - Routine: N/A - Orders Services needed: Physical Therapy, Occupational Therapy Isolation Type: None Diet Texture: Regular Texture Diet, Thin Liquids, Meds Whole in Puree Additional Instructions: Wound care: Bedsore (Pressure injury) care: You have a healed stage 2 pressure injury (also known as a bedsore) on the very lowest part of your back (the sacrum.) To help heal this wound and avoid further injury please do the followin. Reposition yourself frequently, at least every 15 minutes when sitting. Try to stand for at least 3 min every hour so that the tissues fully reperfuse with blood. We recommend sitting on an air cushion. Please never use a doughnut. 2. When youre in bed, try to rest on your side as much as possible, and change position every two hours (for example, turn or tilt from your right side toward your left).~ If you sleep on a sleep number or medical bed, keep the head of the bed below 30 degrees and keep all pressure off your low back for at least 5 minutes at least every two hours.~ 3. As needed, you may use Calazime, dimethicone moisture barrier cream, or any [id number] diaper rash cream to help prevent or treat a moisture-related rash to your bottom area and buttocks. 4. Please contact [facility] for an appointment, at , If your wounds re/open or dont improve, or if you have any further questions or concerns. Change dressings to Sacrum/Coccyx every 3 days and as needed. 1. Clean with normal saline and gauze 2. Skin prep oly wound 3. Cover with Mepilex Border Sacrum Melanie Jeter RN Wound Care Team please make sure Ashley is drinking at least 1500 ml of fluid daily recommending further evaluation by [facility] - Follow Up Care Current Providers and Referrals: KANDICE TRIPLETT [Primary Care Provider] - As per Instructions
[2018-04-15] MEDS: SERTRALINE HCL 100 MG TAB PO SCH ×2 (10:27→10:38)
[2018-04-15] MEDS: risperiDONE 0.5 MG TAB PO SCH (10:28)
[2018-04-15] MEDS: LORazepam 0.5 MG TAB PO SCH (10:28)
--- NOTE | 2018-04-15 10:29 | ASMTLACE ---
NAWAFE Length of stay for Answers: 2 days current admission Acuity / Level of Answers: Yes Care: Did the patient have an inpatient admission? Comorbidities - select Answers: Dementia all that apply Other Notes: HTN # of Emergency department Answers: 1-2 visits in the last 6 months Social determinants Answers: History of substance abuse (ETOH, street drugs, prescription drugs, etc.) Mental health diagnosis (anxiety, depression, pers onality disorders, etc.) Score: 16 Date Signed: 04/15/2018 10:28 AM Electronically Signed By:Alyssa Jose RN
[2018-04-15] MEDS: ACETAMINOPHEN 500 MG TAB PO SCH (10:38)
--- NOTE | 2018-04-15 11:09 | ASMTDCNOTE ---
Case Management Discharge Discharge Order Complete? Answers: Yes Patient to Obtain Answers: Other Notes: [place] Medications Transportation Arranged Answers: [facility] will Pick (Date 04/15/2018 02:00 PM & Time) Case Management Transport Answers: Yes Form Complete Faxed Final Orders Answers: Yes Agency/Facility Transfer Answers: Yes Report Printed & Faxed to Receiving Agency Family Notified Answers: Yes Discharge Comments Notes: D/w SHOE REPAIRER, final orders faxed. Benny at and Alyssa at [facility] notified. RN to call report. Date Signed: 04/15/2018 11:09 AM Electronically Signed By:Alyssa Jose RN
[2018-04-15 11:44] VITALS: BP 110/77
--- NOTE | 2018-04-15 11:59 | GDS ---
DISCHARGE DIAGNOSES: 1. Dehydration. 2. Hypernatremia. 3. Systemic inflammatory response syndrome. 4. Acute metabolic encephalopathy on chronic encephalopathy. 5. Acute hypoxemic respiratory failure. 6. Acute kidney injury. 7. Advanced dementia. 8. Hypertension. HISTORY OF PRESENT ILLNESS: Briefly, the patient is a 78-year-old female with advanced dementia. She presented with dehydration, likely a viral infectious process. She was recently discharged earlier this month after sustaining a right femoral neck fracture, status post hemiarthroplasty. She will be returning today to [facility]. I reviewed with her medical power of compliance attorney , Juan Antonio, about further recommendations to evaluate hospice. She is likely to return to the hospital with ongoing dehydration due to her severe dementia. The patient is not aware to feed and drink water independently. HOSPITAL COURSE: 1. Dehydration, resolved. 2. Hypernatremia. This resolved. 3. SIRS. This is most likely a viral syndrome. She was unable to tell me if anything is bothering her. She had a recent right hemiarthroplasty. That site looks good. Her chest x-ray showed no acute infection. Her urinalysis is stable. Her respiratory PCR is negative. Her blood culture showed no growth. 4. Acute metabolic encephalopathy on chronic encephalopathy. She has underlying severe dementia. She improved, with getting oral and IV hydration. 5. Acute hypoxemic respiratory failure, on room air. 6. Acute kidney injury. This resolved. This is secondary to dehydration. 7. Advanced dementia. Lives in the memory care unit. 8. Hypertension. Blood pressure is slightly low today. DISCHARGE CONDITION: Stable. Blood pressure is 105/70. Heart rate is 80. Respiratory rate is 16, O2 saturation on room air 95%. Temperature is 36.4 Celsius. DISCHARGE MEDICATIONS: Please see the EMR. DISCHARGE INSTRUCTIONS: 1. Recommending wound care. This has been written out in detail. 2. To hold her lisinopril if her systolic blood pressure is less than 110. 3. Further recommendation by [facility]. Greater than 30 minutes discharging and coordinating the patient's care. /[id number]/MODL MTDD
[2018-04-16] MEDS ORDERED: risperiDONE 0.5 MG TAB PO SCH (21:00)
== END 2018-04-15 13:44 | DRG 682 ==
LOC: EDUNIT# → F3E 04:14 → OBSVTOIN 15:02
PROVIDERS: ADMIT Student in an Organized Health Care Education/Training Program; ATTEND Student in an Organized Health Care Education/Training Program
DX: N17.9 Acute kidney failure, unspecified (principal); E86.0 Dehydration; B34.9 Viral infection, unspecified; G93.41 Metabolic encephalopathy; J96.01 Acute respiratory failure with hypoxia; E87.0 Hyperosmolality and hypernatremia; I10 Essential (primary) hypertension; G30.9 Alzheimer's disease, unspecified; F02.80 Dementia in other diseases classified elsewhere, unspecified severity, without behavioral disturbance, psychotic disturbance, mood disturbance, and anxiety; S72.91XD Unspecified fracture of right femur, subsequent encounter for closed fracture with routine healing; Z66 Do not resuscitate; Z86.14 Personal history of Methicillin resistant Staphylococcus aureus infection
CPT/HCPCS: 92610-GN; 97166-GO; G8987-GO-CN; G8988-GO-CN; G8989-GO-CN; G8996-GN-CH; G8996-GN-CJ; G8997-GN-CH; G8997-GN-CJ; G8998-GN-CH; J1644